=== PATIENT | male | born 1955 | race Caucasian/White ===

== ENCOUNTER 2017-03-07 03:31 | Inpatient (IN) | payer OTHER ==
[2017-03-07] MEDS ORDERED: Albuterol-Ipratrop 3 mg / 0.5 (3 ml) UD ONE ×4 (03:50→16:05)
--- NOTE | 2017-03-07 03:54 | C.PDOC ---
History Of Present Illness pt presents with worsening shortness og breath and wheezing. sah his pmd and was given a medrol pack , zithromax without improvement. Speaking in complete sentences. PF 100. Time Seen by Provider: 03/07/17 03:54 Chief Complaint (Nursing): Respiratory Distress History Per: Patient History/Exam Limitations: no limitations Onset/Duration Of Symptoms: Days Current Symptoms Are (Timing): Still Present Associated Symptoms: Dyspnea Preciptating Factors: None Severity: Moderate Pain Scale Rating Of: 4 Recent travel outside of the [place]: No Additional History Per: Patient - Asthma History Rescue Medications: None Control Medications: None Past Medical History Reviewed: Historical Data, Nursing Documentation, Vital Signs Vital Signs: Last Vital Signs Temp 98.4 F 03/07/17 03:43 Pulse 101 H 03/07/17 04:44 Resp 16 03/07/17 04:44 BP 149/97 H 03/07/17 03:43 Pulse Ox 97 03/07/17 05:30 - Medical History PMH: Asthma, COPD Family History: States: No Known Family Hx - Social History Hx Alcohol Use: No Hx Substance Use: No - Immunization History Hx Tetanus Toxoid Vaccination: No Hx Influenza Vaccination: No Hx Pneumococcal Vaccination: No Review Of Systems Constitutional: Negative for: Fever, Chills Eyes: Negative for: Vision Change ENT: Negative for: Ear Pain Cardiovascular: Negative for: Chest Pain, Palpitations Respiratory: Positive for: Cough, Shortness of Breath, Wheezing Gastrointestinal: Negative for: Nausea, Vomiting Genitourinary: Negative for: Dysuria Musculoskeletal: Negative for: Back Pain Skin: Negative for: Rash Neurological: Negative for: Weakness Psych: Negative for: Anxiety Physical Exam - Physical Exam Appears: Non-toxic Skin: Warm, Dry Head: Normacephalic Eye(s): bilateral: Normal Inspection, PERRL, EOMI Oral Mucosa: Moist Neck: Supple Chest: Symmetrical, Tenderness Respiratory: Decreased Breath Sounds, No Rales, No Rhonchi, Wheezing Gastrointestinal/Abdominal: Soft, No Tenderness, No Distention Back: No CVA Tenderness Extremity: Normal ROM Extremity: Bilateral: Atraumatic, Normal Color And Temperature, Normal ROM Pulses: Left Dorsalis Pedis: Normal, Right Dorsalis Pedis: Normal Neurological/Psych: Oriented x3, Normal Speech, Normal Cognition Gait: Steady ED Course And Treatment - Laboratory Results Result Diagrams: 03/07/17 04:37 03/07/17 04:37 ECG: Interpreted By Me, Viewed By Me ECG Rhythm: Sinus Rhythm (100), ST/T Changes (st depression, inf lat, new since 02/10/17), Nonspecific Changes (lvh, ) O2 Sat by Pulse Oximetry: 97 Pulse Ox Interpretation: Normal - Radiology CXR: Interpreted by Me, Viewed By Me CXR Interpretation: Yes: Cardiomegaly. No: Infiltrates, Fracture Critical Care Time - Critical Care Note Total Time (in mins): 30 Documented critical care: time excludes all time spent performing seperately billable procedures. Disposition Discussed With DrTony: Chan Roland Comment: accepted the pt on his service and took over the care at 5:38 AM Doctor Will See Patient In The: Hospital Counseled Patient/Family Regarding: Studies Performed, Diagnosis - Disposition Disposition: HOSPITALIZED Disposition Time: 03:54 Condition: FAIR Forms: [facility] [facility] ([place]) - POA Present On Arrival: None - Clinical Impression Clinical Impression: Exacerbation of asthma, Dyspnea, Abnormal finding on EKG Decision To Admit - Pt Status Changed To: Hospital Disposition Of: Inpatient - Admit Certification Admit to Inpatient:: After my assessment, the patient will require hospitalization for at least two midnights. This is because of the severity of symptoms shown, intensity of services needed, and/or the medical risk in this patient being treated as an outpatient. - InPatient: Physician Admission Certification:: After my assessment, the patient will require hospitalization for at least two midnights. This is because of the severity of symptoms shown, intensity of services needed, and/or the medical risk in this patient being treated as an outpatient. - . Bed Request Type: Telemetry Admitting Physician: Chan Roland Patient Diagnosis: Exacerbation of asthma, Dyspnea, Abnormal finding on EKG
[2017-03-07] MEDS ORDERED: Sodium Chloride 0.9% 1,000 ML IV ONE (03:55)
[2017-03-07] MEDS ORDERED: Albuterol-Ipratrop 3 mg / 0.5 (3 ml) UD INH STA (03:55)
[2017-03-07 04:16] LABS: ABG ALLEN TEST POS; DRAW SITE RR
[2017-03-07] MEDS: Albuterol-Ipratrop 3 mg / 0.5 (3 ml) UD IH SCH ×2 (04:21→06:16)
[2017-03-07 04:40] LABS: BASO % 0.2 % (0.0-2.0); EOS % 0.1 % (0.0-4.0); LYMPH # 0.5 K/uL (1.0-4.3); MEAN CELL VOLUME 93.2 fL (80.0-94.0); MEAN CORPUSCULAR HEMOGLOBIN 31.4 pg (27.0-31.0); MEAN CORPUSCULAR HGB CONC 33.7 g/dL (33.0-37.0); MEAN PLATELET VOLUME 7.7 fL (7.2-11.7); MONO # 0.5 K/uL (0.0-0.8); MONO % 4.3 % (0.0-10.0); PLATELET COUNT 213 K/uL (130-400); RED CELL DISTRIBUTION WIDTH 13.5 % (11.5-14.5); WHITE BLOOD COUNT 10.8 K/uL (4.8-10.8)
[2017-03-07] MEDS ORDERED: Sodium Chloride 0.9% 1,000 ML ONE (04:40)
[2017-03-07 04:48] LABS: CHLORIDE 106 mmol/L (98-107)
[2017-03-07 04:49] LABS: POTASSIUM 4.1 mmol/L (3.6-5.2); SODIUM 140 mmol/L (132-148)
[2017-03-07 04:51] LABS: ALB/GLOB RATIO 1.3 (1.0-2.1); AST/SGOT 68 U/L (17-59); BILIRUBIN,TOTAL 0.6 mg/dL (0.2-1.3); BLOOD UREA NITROGEN 21 mg/dL (9-20); CARBON DIOXIDE 24 mmol/L (22-30); GFR AFRICAN-AMERICAN > 60; TOTAL PROTEIN 5.8 g/dL (6.3-8.3)
[2017-03-07 04:52] LABS: ALKALINE PHOSPHATASE 70 U/L (38-126); ALT/SGPT 106 U/L (21-72); CALCIUM 8.6 mg/dl (8.6-10.4); GLUCOSE,RANDOM 108 mg/dL (75-110)
[2017-03-07 06:04] LABS: NEUTROPHIL 89 % (50-75); TOTAL CELLS COUNTED 100
[2017-03-07] MEDS: MethylPREDNISolone 40 mg Vial IVP SCH ×3 (06:07→22:42)
--- NOTE | 2017-03-07 09:24 | RAD ---
PROCEDURE: CHEST RADIOGRAPH, 1 VIEW HISTORY: Shortness of breath COMPARISON: 03/07/2017 FINDINGS: LUNGS: Biapical pleural thickening with upper lobe granulomatous changes. Moderate venous congestion. Prominent diffuse increased interstitial lung markings. More cough confluent patchy consolidative changes in the right infrahilar region and left lung base. Small left and trace right pleural effusion. Scattered nodular densities in both lungs. PLEURA: As above. CARDIOVASCULAR: Cardiomegaly. OSSEOUS STRUCTURES: Degenerative changes in the spine and shoulders. VISUALIZED UPPER ABDOMEN: Normal. OTHER FINDINGS: None. IMPRESSION: Biapical pleural thickening with upper lobe granulomatous changes. Moderate venous congestion. Prominent diffuse increased interstitial lung markings. More cough confluent patchy consolidative changes in the right infrahilar region and left lung base. Small left and trace right pleural effusion. Scattered nodular densities in both lungs.
[2017-03-07] MEDS: Albuterol-Ipratrop 3 mg / 0.5 (3 ml) UD INH SCH ×3 (10:25→20:07)
[2017-03-07] MEDS: Enoxaparin 40 mg Syringe SC SCH (11:56)
[2017-03-07] MEDS ORDERED: Enoxaparin 40 mg Syringe ONE (13:10)
[2017-03-07 16:03] LABS: TROPONIN I 0.036 ng/mL (0.00-0.120)
--- NOTE | 2017-03-07 23:52 | CP.PCM.HP ---
History of Present Illness - History of Present Illness History of Present Illness: 61 years old male complaining of worsening of shortness of breath and wheezing for the past 2 weeks. She was treated with Medrol pack and Zithromax as an outpatient without any improvement. He is known to have a bronchial asthma, a hypertension and a gout, he denies any fever, chills. Present on Admission - Present on Admission Any Indicators Present on Admission: No Past Patient History - Past Medical History & Family History Past Medical History?: Yes - Past Social History Smoking Status: Never Smoked Alcohol: None Drugs: Denies Home Situation {Lives}: With Family Domestic Violence: Negative - CARDIAC Hx Hypertension: Yes - PULMONARY Hx Asthma: Yes Hx Chronic Obstructive Pulmonary Disease (COPD): Yes - MUSCULOSKELETAL/RHEUMATOLOGICAL Hx Falls: No Hx Gout: Yes - PSYCHIATRIC Hx Substance Use: No - SURGICAL HISTORY Other/Comment: as per pt. he had heart and lung sx in [place] in 1990 - ANESTHESIA Hx Anesthesia: Yes Hx Anesthesia Reactions: No Hx Malignant Hyperthermia: No Meds Allergies/Adverse Reactions: Allergies Allergy/AdvReac Type Severity Reaction Status Date / Time No Known Allergies Allergy Unverified 03/07/17 03:47 Physical Exam - Constitutional Appears: In Acute Distress - Head Exam Head Exam: NORMAL INSPECTION - Eye Exam Eye Exam: Normal appearance - ENT Exam ENT Exam: Normal Exam - Neck Exam Neck exam: Positive for: Normal Inspection - Respiratory Exam Additional comments: Wheezes bilaterally. - Cardiovascular Exam Cardiovascular Exam: REGULAR RHYTHM - GI/Abdominal Exam GI & Abdominal Exam: Normal Bowel Sounds, Soft - Rectal Exam Rectal Exam: Deferred - Extremities Exam Extremities exam: Positive for: normal inspection - Back Exam Back exam: NORMAL INSPECTION - Neurological Exam Neurological exam: Alert, Oriented x3 - Psychiatric Exam Psychiatric exam: Anxious - Skin Skin Exam: Dry, Intact, Normal Color, Warm Results - Vital Signs Recent Vital Signs: Last Vital Signs Temp 97.9 F 03/07/17 17:15 Pulse 100 H 03/07/17 20:07 Resp 20 03/07/17 17:15 BP 130/80 03/07/17 17:15 Pulse Ox 95 03/07/17 17:30 - Labs Result Diagrams: 03/07/17 04:37 03/07/17 04:37 Labs: Laboratory Results - last 24 hr 03/07/17 03/07/17 03/07/17 04:13 04:37 04:37 WBC 10.8 RBC 4.51 Hgb 14.2 Hct 42.0 MCV 93.2 MCH 31.4 H MCHC 33.7 RDW 13.5 Plt Count 213 MPV 7.7 Neut % (Auto) 90.4 H Lymph % (Auto) 5.0 L [place] % (Auto) 4.3 Eos % (Auto) 0.1 Baso % (Auto) 0.2 Neut # 9.8 H Lymph # 0.5 L [place] # 0.5 Eos # 0.0 Baso # 0.0 Neutrophils % (Manual) 89 H Lymphocytes % (Manual) 6 L Monocytes % (Manual) 5 Platelet Estimate Normal Puncture Site Rr pCO2 32 L pO2 91 HCO3 25.2 ABG pH 7.47 H ABG Total CO2 24.3 ABG O2 Saturation 98.6 H ABG Base Excess 0.3 Win Test Pos ABG Potassium 3.9 A-a O2 Difference 19.0 Respiratory Index 0.2 Sodium 138.0 140 Chloride 110.0 H 106 Glucose 120 H Lactate 1.2 FiO2 21.0 Potassium 4.1 Carbon Dioxide 24 Anion Gap 15 BUN 21 H Creatinine 0.9 Est GFR ( Amer) > 60 Est GFR (Non-Af Amer) > 60 Random Glucose 108 Calcium 8.6 Total Bilirubin 0.6 AST 68 H ALT 106 H Alkaline Phosphatase 70 Total Creatine Kinase CK-MB (Mass) Troponin I Troponin I, Quant NT-Pro-B Natriuret Pep Total Protein 5.8 L Albumin 3.3 L Globulin 2.5 Albumin/Globulin Ratio 1.3 Arterial Blood Potassium 3.9 03/07/17 03/07/17 03/07/17 05:18 05:57 14:13 WBC RBC Hgb Hct MCV MCH MCHC RDW Plt Count MPV Neut % (Auto) Lymph % (Auto) [place] % (Auto) Eos % (Auto) Baso % (Auto) Neut # Lymph # [place] # Eos # Baso # Neutrophils % (Manual) Lymphocytes % (Manual) Monocytes % (Manual) Platelet Estimate Puncture Site pCO2 pO2 HCO3 ABG pH ABG Total CO2 ABG O2 Saturation ABG Base Excess Win Test ABG Potassium A-a O2 Difference Respiratory Index Sodium Chloride Glucose Lactate FiO2 Potassium Carbon Dioxide Anion Gap BUN Creatinine Est GFR ( Amer) Est GFR (Non-Af Amer) Random Glucose Calcium Total Bilirubin AST ALT Alkaline Phosphatase Total Creatine Kinase 138 110 CK-MB (Mass) 3.14 2.60 Troponin I 0.0360 Troponin I, Quant 0.0520 0.0360 NT-Pro-B Natriuret Pep 5070 H Total Protein Albumin Globulin Albumin/Globulin Ratio Arterial Blood Potassium Assessment & Plan (1) Abnormal finding on EKG Assessment and Plan: Will do serial ECG's and serum TNI's. Status: Acute (2) Exacerbation of asthma Assessment and Plan: To continue Solumedrol, bronchodilators via nebulizer. Status: Acute Decision To Admit - Pt Status Changed To: Hospital Disposition Of: Inpatient - Admit Certification Admit to Inpatient:: After my assessment, the patient will require hospitalization for at least two midnights. This is because of the severity of symptoms shown, intensity of services needed, and/or the medical risk in this patient being treated as an outpatient. - InPatient: Physician Admission Certification:: After my assessements, the patient requires hospitalization for at least 2 midnights. - . Bed Request Type: Telemetry Admitting Physician: Chan Roland
[2017-03-08] MEDS: Albuterol-Ipratrop 3 mg / 0.5 (3 ml) UD INH SCH ×4 (01:03→19:46)
[2017-03-08] MEDS: MethylPREDNISolone 40 mg Vial IVP SCH ×3 (05:40→22:09)
[2017-03-08] MEDS: Enoxaparin 40 mg Syringe SC SCH (10:27)
[2017-03-08] MEDS: cefTRIAXone IV 1 gm in Dextros 50 ML IVPB SCH (10:28)
[2017-03-08] MEDS ORDERED: Perflutren Lipid Microsphere 1.5 ML SUS IV ONE (12:00)
--- NOTE | 2017-03-08 23:09 | CP.PCM.PN ---
Subjective - Date & Time of Evaluation Date of Evaluation: 03/08/17 Time of Evaluation: 19:00 - Subjective Subjective: Patient less SOB with Lasix IV. Echo reveals a dilated LV with a marked global hypokinesia and an LVEF about 25-30%. There is allso a minimal TR, AI, and a mild MR, a dilated IVC. Telemetry showed an episode of ventricular tachycardia. Will decrease Solumedrol soage, recheck serum electrolytes and Magnesium and add Spirolnolactone. Objective - Vital Signs/Intake and Output Vital Signs (last 24 hours): Temp Pulse Resp BP Pulse Ox 98.1 F 99 H 20 101/64 97 03/08/17 15:58 03/08/17 16:17 03/08/17 15:58 03/08/17 15:58 03/08/17 15:58 Intake and Output: 03/08/17 03/09/17 18:59 06:59 Intake Total 600 Output Total 400 Balance 200 - Medications Medications: Current Medications Albuterol/Ipratropium (Duoneb 3 Mg/0.5 Mg (3 Ml) Ud) 3 ml INH RQ6 [facility] Last Admin: 03/08/17 19:46 Dose: 3 ml Allopurinol (Zyloprim) 100 mg PO DAILY [facility] Last Admin: 03/08/17 10:27 Dose: 100 mg Amlodipine Besylate (Norvasc) 10 mg PO DAILY [facility] Last Admin: 03/08/17 10:27 Dose: 10 mg Azithromycin (Zithromax) 500 mg PO DAILY [facility] Last Admin: 03/08/17 10:26 Dose: 500 mg Enoxaparin Sodium (Lovenox) 40 mg SC DAILY [facility] Last Admin: 03/08/17 10:27 Dose: 40 mg Furosemide (Lasix) 40 mg IVP DAILY [facility] Last Admin: 03/08/17 10:39 Dose: 40 mg Ceftriaxone Sodium (Rocephin Iv 1 Gm Duplex) 50 mls @ 100 mls/hr IVPB DAILY [facility] Last Admin: 03/08/17 10:28 Dose: 100 mls/hr Losartan Potassium (Cozaar) 100 mg PO DAILY [facility] Last Admin: 03/08/17 10:27 Dose: 100 mg Methylprednisolone (Solu-Medrol) 60 mg IVP Q8 [facility] Last Admin: 03/08/17 22:09 Dose: 60 mg Pneumococcal Polyvalent Vaccine (Pneumovax 23 Vaccine) 0.5 ml IM .ONCE ONE Stop: 03/09/17 10:01 - Labs Labs: 03/07/17 04:37 03/07/17 04:37 - Constitutional Appears: No Acute Distress - Head Exam Head Exam: NORMAL INSPECTION - Eye Exam Eye Exam: Normal appearance - ENT Exam ENT Exam: Normal Exam - Neck Exam Neck Exam: Normal Inspection - Respiratory Exam Additional comments: Decreased wheezes bilaterally. - Cardiovascular Exam Cardiovascular Exam: REGULAR RHYTHM, Murmur - GI/Abdominal Exam GI & Abdominal Exam: Soft, Normal Bowel Sounds - Rectal Exam Rectal Exam: Deferred - Extremities Exam Extremities Exam: Normal Inspection - Back Exam Back Exam: NORMAL INSPECTION - Neurological Exam Neurological Exam: Alert, Awake, Oriented x3 - Psychiatric Exam Psychiatric exam: Anxious - Skin Skin Exam: Dry, Intact, Normal Color, Warm Assessment and Plan (1) Abnormal finding on EKG Status: Acute (2) Exacerbation of asthma Assessment & Plan: Decreased Solumedrol. Status: Acute (3) Acute systolic CHF (congestive heart failure) Assessment & Plan: To continue Lasix, Losartan. Will add Aldactone. Status: Acute (4) Non-ischemic cardiomyopathy Assessment & Plan: Patient had a normal Myoview stress test last year. Status: Acute (5) Pneumonia Assessment & Plan: To continue IV antibiotics. Status: Acute
[2017-03-08] MEDS ORDERED: methylPREDNISolone 60 MG in Sodium Chloride 0.9% 100 ML IVPB SCH (23:15)
[2017-03-09] MEDS: Albuterol-Ipratrop 3 mg / 0.5 (3 ml) UD INH SCH ×4 (01:15→19:24)
[2017-03-09 07:18] LABS: CHLORIDE 98 mmol/L (98-107); POTASSIUM 4.4 mmol/L (3.6-5.2); SODIUM 133 mmol/L (132-148)
[2017-03-09 07:20] LABS: ALB/GLOB RATIO 1.2 (1.0-2.1); BILIRUBIN,TOTAL 0.6 mg/dL (0.2-1.3); CARBON DIOXIDE 25 mmol/L (22-30); GFR AFRICAN-AMERICAN > 60; TOTAL PROTEIN 6.3 g/dL (6.3-8.3)
[2017-03-09 07:21] LABS: ALKALINE PHOSPHATASE 57 U/L (38-126); ALT/SGPT 63 U/L (21-72); AST/SGOT 22 U/L (17-59); BLOOD UREA NITROGEN 25 mg/dL (9-20); CALCIUM 8.5 mg/dl (8.6-10.4); GLUCOSE,RANDOM 140 mg/dL (75-110); MAGNESIUM 2.2 mg/dL (1.6-2.3)
[2017-03-09 07:37] LABS: FREE T4 0.81 ng/dL (0.78-2.19)
[2017-03-09 09:10] LABS: THYROID STIMULATING HORMONE 0.26 mIU/L (0.46-4.68)
[2017-03-09] MEDS: cefTRIAXone IV 1 gm in Dextros 50 ML IVPB SCH (09:56)
[2017-03-09] MEDS ORDERED: Influenza Vaccine 60 mcg/0.5 mL SYR (4YR UP) IM ONE (10:00)
[2017-03-09] MEDS: Enoxaparin 40 mg Syringe SC SCH (10:00)
[2017-03-09] MEDS ORDERED: Influenza Virus Vaccine 45 mcg/0.5 ml Syr (36 months - 7 yrs) IM ONE (10:00)
[2017-03-09] MEDS ORDERED: Pneumococcal 23-Valent Vaccine IM ONE (10:00)
[2017-03-09] MEDS ORDERED: methylPREDNISolone 60 MG in Sodium Chloride 0.9% 100 ML IVPB SCH (10:00)
--- NOTE | 2017-03-09 12:04 | CARD ---
APPROVED REPORT EKG Measurement Heart [id number] <Conclusion> Normal sinus rhythm Possible Left atrial enlargement Left axis deviation Left ventricular hypertrophy with QRS widening and repolarization abnormality Prolonged QT Abnormal ECG
--- NOTE | 2017-03-09 12:37 | CARD ---
APPROVED REPORT EXAM: Two-dimensional and M-mode echocardiogram with Doppler, color Doppler with contrast. Other Information Quality : GoodRhythm : NSR INDICATION Dyspnea Cardiomyopathy Congestive Heart Failure SOB, ACUTE ASTHMA INFERIOR LATERAL ISCHEMIC JEANNETTE RISK FACTORS Hypertension 2D DIMENSIONS IVSd0.9 (0.7-1.1cm)LVDd6.9 (3.9-5.9cm) PWd0.8 (0.7-1.1cm)LVDs6.4 (2.5-4.0cm) FS (%) 8.2 %LVEF (%)17.6 (>50%) M-Mode DIMENSIONS RVDd2.03 (2.1-3.2cm)Left Atrium (MM)4.30 (2.5-4.0cm) IVSd0.70 (0.7-1.1cm)Aortic Root3.54 (2.2-3.7cm) LVDd7.46 (4.0-5.6cm)Aortic Cusp Exc.2.10 (1.5-2.0cm) PWd0.82 (0.7-1.1cm)FS (%) 7 % LVDs6.91 (2.0-3.8cm)LVEF (%)16 (>50%) Aortic Valve AI P 1/2 [id number] Mitral Valve E/A ratio0.0 TDI E/Lateral E'0.0E/Medial E'0.0 Tricuspid Valve TR Peak [id number] Peak [id number] LEFT VENTRICLE The Left Ventricle is severely dilated. There is normal left ventricular wall thickness. The Ejection Fraction is 15-20%. There is global hypokinesis of the left ventricle. dialted la,increases la volume index is suggestive of moderate degree of lv diastolic dysfunciton. No left ventricle thrombus noted on this study. RIGHT VENTRICLE The right ventricle is normal size. The right ventricular systolic function is normal. ATRIA The left atrium is mildly dilated. The right atrium size is normal. AORTIC VALVE The aortic valve is normal in structure. There is mild aortic regurgitation. MITRAL VALVE The mitral valve is normal in structure. Mitral regurgitation is moderate. TRICUSPID VALVE The tricuspid valve is normal in structure. There is mild tricuspid regurgitation. Right ventricular systolic pressure is estimated at 28 mmHg. There is no pulmonary hypertension. PULMONIC VALVE The pulmonary valve is normal in structure. There is mild pulmonic valvular regurgitation. GREAT VESSELS The aortic root is normal in size. Dilated IVC with poor inspiration collapse is consistent with elevated right atrial pressure. PERICARDIAL EFFUSION There is no pericardial effusion. <Conclusion> dialted la,increases la volume index is suggestive of moderate degree of lv diastolic dysfunciton. The Left Ventricle is severely dilated. There is normal left ventricular wall thickness. The Ejection Fraction is 15-20%. There is global hypokinesis of the left ventricle. The left atrium is mildly dilated. Mitral regurgitation is moderate. There is mild tricuspid regurgitation. Right ventricular systolic pressure is estimated at 28 mmHg. There is no pulmonary hypertension. Dilated IVC with poor inspiration collapse is consistent with elevated right atrial pressure.
--- NOTE | 2017-03-09 23:12 | CP.PCM.PN ---
Subjective - Date & Time of Evaluation Date of Evaluation: 03/09/17 Time of Evaluation: 21:45 - Subjective Subjective: Patient less SOB, but still wheezes. Afebrile. For a repeated CXR to-jung. Objective - Vital Signs/Intake and Output Vital Signs (last 24 hours): Temp Pulse Resp BP Pulse Ox 98.2 F 105 H 20 105/72 95 03/09/17 15:37 03/09/17 16:17 03/09/17 15:37 03/09/17 15:37 03/09/17 15:37 Intake and Output: 03/09/17 03/10/17 18:59 06:59 Intake Total 450 400 Balance 450 400 - Medications Medications: Current Medications Albuterol/Ipratropium (Duoneb 3 Mg/0.5 Mg (3 Ml) Ud) 3 ml INH RQ6 [facility] Last Admin: 03/09/17 19:24 Dose: 3 ml Allopurinol (Zyloprim) 100 mg PO DAILY [facility] Last Admin: 03/09/17 10:01 Dose: 100 mg Amlodipine Besylate (Norvasc) 10 mg PO DAILY [facility] Last Admin: 03/09/17 10:01 Dose: 10 mg Azithromycin (Zithromax) 500 mg PO DAILY [facility] Last Admin: 03/09/17 10:01 Dose: 500 mg Enoxaparin Sodium (Lovenox) 40 mg SC DAILY [facility] Last Admin: 03/09/17 10:00 Dose: 40 mg Furosemide (Lasix) 40 mg IVP DAILY [facility] Last Admin: 03/09/17 10:01 Dose: 40 mg Ceftriaxone Sodium (Rocephin Iv 1 Gm Duplex) 50 mls @ 100 mls/hr IVPB DAILY [facility] Last Admin: 03/09/17 09:56 Dose: 100 mls/hr Losartan Potassium (Cozaar) 100 mg PO DAILY [facility] Last Admin: 03/09/17 10:02 Dose: 100 mg Methylprednisolone (Solu-Medrol) 60 mg IVP Q12 [facility] Last Admin: 03/09/17 22:15 Dose: 60 mg - Labs Labs: 03/07/17 04:37 03/09/17 07:01 - Constitutional Appears: No Acute Distress - Head Exam Head Exam: NORMAL INSPECTION - Eye Exam Eye Exam: Normal appearance Pupil Exam: NORMAL ACCOMODATION - ENT Exam ENT Exam: Normal Exam - Neck Exam Neck Exam: Normal Inspection - Respiratory Exam Respiratory Exam: Wheezes Additional comments: Wheezes bilaterally. - Cardiovascular Exam Cardiovascular Exam: REGULAR RHYTHM, Murmur - GI/Abdominal Exam GI & Abdominal Exam: Soft, Normal Bowel Sounds - Rectal Exam Rectal Exam: Deferred - Exam Exam: NORMAL INSPECTION - Extremities Exam Extremities Exam: Normal Inspection - Neurological Exam Neurological Exam: Alert, Awake, Normal Gait, Oriented x3 - Psychiatric Exam Psychiatric exam: Anxious - Skin Skin Exam: Dry, Intact, Warm Assessment and Plan (1) Abnormal finding on EKG Status: Acute (2) Exacerbation of asthma Assessment & Plan: To continue IV Solumedrol and Duoneb by nebulizer. Status: Acute (3) Acute systolic CHF (congestive heart failure) Assessment & Plan: To continue Lasix IV and Losartan. Status: Acute (4) Non-ischemic cardiomyopathy Status: Acute (5) Pneumonia Assessment & Plan: To continue Rocephin IV and Zithromax PO. Repeat CXR in AM. Status: Acute
[2017-03-10] MEDS: Albuterol-Ipratrop 3 mg / 0.5 (3 ml) UD INH SCH ×4 (01:06→19:12)
[2017-03-10 08:26] VITALS: RESP 20
[2017-03-10] MEDS: cefTRIAXone IV 1 gm in Dextros 50 ML IVPB SCH (09:17)
[2017-03-10] MEDS: guaiFENesin 200 mg/10 ml Syrup UD PO PRN (09:17)
[2017-03-10] MEDS: Enoxaparin 40 mg Syringe SC SCH (09:19)
[2017-03-10] MEDS ORDERED: Influenza Vaccine 60 mcg/0.5 mL SYR (4YR UP) IM ONE (10:00)
--- NOTE | 2017-03-10 10:10 | RAD ---
HISTORY: F/U CHF, Pneumonia, exacerbation of asthma. COMPARISON: 03/07/2017 TECHNIQUE: Chest PA and lateral FINDINGS: LUNGS: Increased lung volume, by lateral upper lobe cystic emphysematous changes suggested. . No dense consolidation. 1.2 cm nodular opacity projecting over the anterior right 1st rib possibly coaster cartilaginous junctional related similar appearance. Indeterminate equivocal nodular opacity over left lateral hemidiaphragm -increasing conspicuity - summation of soft tissues versus a true parenchymal pathology here considerations. PLEURA: No significant pleural effusion identified. No pneumothorax apparent. CARDIOVASCULAR: Cardiomegaly -similar OSSEOUS STRUCTURES: No significant abnormalities. VISUALIZED UPPER ABDOMEN: Normal. OTHER FINDINGS: None. IMPRESSION: No dense consolidation. No arnulfo pulmonary edema. Cardiomegaly. Right upper lobe nodular opacity probably related to right 1st coaster cartilaginous junction. Left lateral lung base vague nodular opacity- determinate in significance (if any). Consider CT chest without contrast for clarification
--- NOTE | 2017-03-10 23:30 | CP.PCM.PN ---
Subjective - Date & Time of Evaluation Date of Evaluation: 03/10/17 Time of Evaluation: 20:45 - Subjective Subjective: Patient much less SOB. Afebrile. CXR: No consolitation, but an ill-defined opacity at the left lateral hemidiaphragm. Will order a CT scan of the chest without contrast. If it's normal, will discharge home in AM. Objective - Vital Signs/Intake and Output Vital Signs (last 24 hours): Temp Pulse Resp BP Pulse Ox 97.4 F L 117 H 20 138/54 L 98 03/10/17 15:30 03/10/17 16:00 03/10/17 15:30 03/10/17 15:30 03/10/17 15:30 Intake and Output: 03/10/17 03/11/17 18:59 06:59 Intake Total 770 Balance 770 - Medications Medications: Current Medications Albuterol/Ipratropium (Duoneb 3 Mg/0.5 Mg (3 Ml) Ud) 3 ml INH RQ6 [facility] Last Admin: 03/10/17 19:12 Dose: 3 ml Allopurinol (Zyloprim) 100 mg PO DAILY [facility] Last Admin: 03/10/17 09:18 Dose: 100 mg Amlodipine Besylate (Norvasc) 10 mg PO DAILY [facility] Last Admin: 03/10/17 09:18 Dose: 10 mg Azithromycin (Zithromax) 500 mg PO DAILY [facility] Last Admin: 03/10/17 09:18 Dose: 500 mg Enoxaparin Sodium (Lovenox) 40 mg SC DAILY [facility] Last Admin: 03/10/17 09:19 Dose: 40 mg Furosemide (Lasix) 40 mg IVP DAILY [facility] Last Admin: 03/10/17 09:22 Dose: 40 mg Guaifenesin (Robitussin) 200 mg PO QID PRN PRN Reason: Cough and congestion Last Admin: 03/10/17 09:17 Dose: 200 mg Ceftriaxone Sodium (Rocephin Iv 1 Gm Duplex) 50 mls @ 100 mls/hr IVPB DAILY [facility] Last Admin: 03/10/17 09:17 Dose: 100 mls/hr Losartan Potassium (Cozaar) 100 mg PO DAILY [facility] Last Admin: 03/10/17 09:18 Dose: 100 mg Methylprednisolone (Solu-Medrol) 60 mg IVP Q12 [facility] Last Admin: 03/10/17 22:14 Dose: 60 mg - Labs Labs: 03/07/17 04:37 03/09/17 07:01 - Constitutional Appears: No Acute Distress - Head Exam Head Exam: NORMAL INSPECTION - Eye Exam Eye Exam: Normal appearance - ENT Exam ENT Exam: Normal Exam - Neck Exam Neck Exam: Normal Inspection - Respiratory Exam Additional comments: Few wheezes bilaterally. - Cardiovascular Exam Cardiovascular Exam: REGULAR RHYTHM, Murmur - GI/Abdominal Exam GI & Abdominal Exam: Soft, Normal Bowel Sounds - Rectal Exam Rectal Exam: Deferred - Extremities Exam Extremities Exam: Normal Inspection - Back Exam Back Exam: NORMAL INSPECTION - Neurological Exam Neurological Exam: Alert, Awake, Normal Gait, Oriented x3 - Psychiatric Exam Psychiatric exam: Anxious - Skin Skin Exam: Dry, Intact, Normal Color, Warm Assessment and Plan (1) Abnormal finding on EKG Status: Acute (2) Exacerbation of asthma Assessment & Plan: To decrease Solumedrol Status: Acute (3) Acute systolic CHF (congestive heart failure) Assessment & Plan: To continue Losartan and Diuretics. Status: Acute (4) Non-ischemic cardiomyopathy Status: Acute (5) Pneumonia Assessment & Plan: To continue IV antibiotics. Status: Acute
[2017-03-11] MEDS: Albuterol-Ipratrop 3 mg / 0.5 (3 ml) UD INH SCH ×3 (01:39→13:33)
[2017-03-11 07:31] LABS: BASO % 0.1 % (0.0-2.0); LYMPH # 0.2 K/uL (1.0-4.3); MEAN CELL VOLUME 93.4 fL (80.0-94.0); MEAN CORPUSCULAR HEMOGLOBIN 31.7 pg (27.0-31.0); MEAN CORPUSCULAR HGB CONC 33.9 g/dL (33.0-37.0); MEAN PLATELET VOLUME 7.8 fL (7.2-11.7); MONO # 0.4 K/uL (0.0-0.8); MONO % 4.6 % (0.0-10.0); PLATELET COUNT 235 K/uL (130-400); RED CELL DISTRIBUTION WIDTH 13.3 % (11.5-14.5); WHITE BLOOD COUNT 8.2 K/uL (4.8-10.8)
[2017-03-11 07:44] LABS: CHLORIDE 98 mmol/L (98-107); SODIUM 132 mmol/L (132-148)
[2017-03-11 07:45] LABS: POTASSIUM 4.2 mmol/L (3.6-5.2)
[2017-03-11 07:47] LABS: ALB/GLOB RATIO 1.2 (1.0-2.1); ALKALINE PHOSPHATASE 53 U/L (38-126); AST/SGOT 22 U/L (17-59); BILIRUBIN,TOTAL 0.7 mg/dL (0.2-1.3); BLOOD UREA NITROGEN 30 mg/dL (9-20); CARBON DIOXIDE 25 mmol/L (22-30); GFR AFRICAN-AMERICAN > 60; GLUCOSE,RANDOM 112 mg/dL (75-110)
[2017-03-11 07:48] LABS: ALT/SGPT 49 U/L (21-72); CALCIUM 8.4 mg/dl (8.6-10.4); URIC ACID 7.9 mg/dL (3.5-8.5)
[2017-03-11 08:22] VITALS: O2SAT 97
[2017-03-11 09:26] LABS: NEUTROPHIL 94 % (50-75); TOTAL CELLS COUNTED 100
[2017-03-11] MEDS: Enoxaparin 40 mg Syringe SC SCH (09:54)
[2017-03-11] MEDS: cefTRIAXone IV 1 gm in Dextros 50 ML IVPB SCH (09:55)
[2017-03-11] MEDS: guaiFENesin 200 mg/10 ml Syrup UD PO PRN (10:04)
--- NOTE | 2017-03-11 10:12 | CT ---
CT chest without IV contrast Indication: Left lateral lung opacity Technique: Contiguous axial images were obtained through the chest without intravenous contrast enhancement. Sagittal and coronal reconstructions were generated and reviewed. This CT exam was performed using 1 or more of the falling dose reduction techniques: Automated exposure control, adjustment of the MAA and/or kV according to patient size, and/or use of iterative reconstruction technique. Radiation dose (DLP): 250.85 MGy-cm. Comparison: Chest x-ray performed 03/10/17 Findings: Visualized portions of the inferior thyroid gland appear unremarkable. The enhance mediastinal and hilar vascular structures appear grossly unremarkable. Cardiomegaly. Coronary artery calcifications. Bibasilar dependent atelectasis. Focal opacity in left upper lobe appears consistent with pleural parenchymal scarring. No focal consolidation. No pleural effusion. No pneumothorax. 2 mm right lower lobe calcified granuloma. Limited visualization of the noncontrast upper abdomen demonstrates bilateral nonobstructing renal calculi measuring up to 5 mm. Cholelithiasis. Osseous demineralization. Degenerative changes of the osseous structures. Impression: And focal opacity in the left upper lobe appears consistent with pleural parenchymal scarring. Bibasilar atelectasis. Nonobstructing bilateral renal calculi. Cholelithiasis. Cardiomegaly. Dense coronary artery calcifications.
[2017-03-11 16:47] VITALS: BP 101/58; PULSE 51; TEMP 98.3
--- NOTE | 2017-03-13 06:45 | CARD ---
APPROVED REPORT EKG Measurement Heart [id number] [place] [id number] <Conclusion> Normal sinus rhythm Possible Left atrial enlargement Left axis deviation Left ventricular hypertrophy with QRS widening and repolarization abnormality Cannot rule out Septal infarct, age undetermined Abnormal ECG
--- NOTE | 2017-03-16 19:51 | CP.PCM.DIS ---
Provider - Provider Date of Admission: 03/07/17 05:39 Attending physician: Chan Roland MD Primary care physician: Chan Roland M.D. Time Spent in preparation of Discharge (in minutes): 30 Diagnosis - Discharge Diagnosis (1) Abnormal finding on EKG Status: Acute (2) Exacerbation of asthma Status: Acute (3) Acute systolic CHF (congestive heart failure) Status: Acute (4) Non-ischemic cardiomyopathy Status: Acute Hospital Course - Lab Results Lab Results: Most Recent Lab Values WBC 8.2 K/uL (4.8-10.8) 03/11/17 07:20 RBC 4.82 Mil/uL (4.40-5.90) 03/11/17 07:20 Hgb 15.2 g/dL (12.0-18.0) 03/11/17 07:20 Hct 45.0 % (35.0-51.0) 03/11/17 07:20 MCV 93.4 fL (80.0-94.0) 03/11/17 07:20 MCH 31.7 pg (27.0-31.0) H 03/11/17 07:20 MCHC 33.9 g/dL (33.0-37.0) 03/11/17 07:20 RDW 13.3 % (11.5-14.5) 03/11/17 07:20 Plt Count 235 K/uL (130-400) 03/11/17 07:20 MPV 7.8 fL (7.2-11.7) 03/11/17 07:20 Neut % (Auto) 93.3 % (50.0-75.0) H 03/11/17 07:20 Lymph % (Auto) 2.0 % (20.0-40.0) L 03/11/17 07:20 [place] % (Auto) 4.6 % (0.0-10.0) 03/11/17 07:20 Eos % (Auto) 0.0 % (0.0-4.0) 03/11/17 07:20 Baso % (Auto) 0.1 % (0.0-2.0) 03/11/17 07:20 Neut # 7.6 K/uL (1.8-7.0) H 03/11/17 07:20 Lymph # 0.2 K/uL (1.0-4.3) L 03/11/17 07:20 [place] # 0.4 K/uL (0.0-0.8) 03/11/17 07:20 Eos # 0.0 K/uL (0.0-0.7) 03/11/17 07:20 Baso # 0.0 K/uL (0.0-0.2) 03/11/17 07:20 Neutrophils % (Manual) 94 % (50-75) H 03/11/17 07:20 Lymphocytes % (Manual) 2 % (20-40) L 03/11/17 07:20 Monocytes % (Manual) 4 % (0-10) 03/11/17 07:20 Platelet Estimate Normal (NORMAL) 03/11/17 07:20 Puncture Site Rr 03/07/17 04:13 pCO2 32 mm/Hg (35-45) L 03/07/17 04:13 pO2 91 mm/Hg (80-100) 03/07/17 04:13 HCO3 25.2 mmol/L (21-28) 03/07/17 04:13 ABG pH 7.47 (7.35-7.45) H 03/07/17 04:13 ABG Total CO2 24.3 mmol/L (22-28) 03/07/17 04:13 ABG O2 Saturation 98.6 % (95-98) H 03/07/17 04:13 ABG Base Excess 0.3 mmol/L (-2.0-3.0) 03/07/17 04:13 Win Test Pos 03/07/17 04:13 ABG Potassium 3.9 mmol/L (3.6-5.2) 03/07/17 04:13 A-a O2 Difference 19.0 mm/Hg 03/07/17 04:13 Respiratory Index 0.2 03/07/17 04:13 Sodium 138.0 mmol/l (132-148) 03/07/17 04:13 Chloride 110.0 mmol/L (98-107) H 03/07/17 04:13 Glucose 120 mg/dl (75-110) H 03/07/17 04:13 Lactate 1.2 mmol/L (0.7-2.1) 03/07/17 04:13 FiO2 21.0 % 03/07/17 04:13 Sodium 132 mmol/L (132-148) 03/11/17 07:20 Potassium 4.2 mmol/L (3.6-5.2) 03/11/17 07:20 Chloride 98 mmol/L (98-107) 03/11/17 07:20 Carbon Dioxide 25 mmol/L (22-30) 03/11/17 07:20 Anion Gap 13 (10-20) 03/11/17 07:20 BUN 30 mg/dL (9-20) H 03/11/17 07:20 Creatinine 1.0 mg/dL (0.8-1.5) 03/11/17 07:20 Est GFR ( Amer) > 60 03/11/17 07:20 Est GFR (Non-Af Amer) > 60 03/11/17 07:20 Random Glucose 112 mg/dL (75-110) H 03/11/17 07:20 Uric Acid 7.9 mg/dL (3.5-8.5) 03/11/17 07:20 Calcium 8.4 mg/dl (8.6-10.4) L 03/11/17 07:20 Magnesium 2.2 mg/dL (1.6-2.3) 03/09/17 07:01 Total Bilirubin 0.7 mg/dL (0.2-1.3) 03/11/17 07:20 AST 22 U/L (17-59) 03/11/17 07:20 ALT 49 U/L (21-72) 03/11/17 07:20 Alkaline Phosphatase 53 U/L (38-126) 03/11/17 07:20 Total Creatine Kinase 110 U/L (55-170) 03/07/17 14:13 CK-MB (Mass) 2.60 ng/mL (0.0-3.38) 03/07/17 14:13 Troponin I 0.0360 ng/mL (0.00-0.120) 03/07/17 14:13 Troponin I, Quant 0.0360 ng/mL (0.00-0.120) 03/07/17 14:13 NT-Pro-B Natriuret Pep 5070 pg/mL (0-900) H 03/07/17 05:18 Total Protein 6.0 g/dL (6.3-8.3) L 03/11/17 07:20 Albumin 3.3 g/dL (3.5-5.0) L 03/11/17 07:20 Globulin 2.7 gm/dL (2.2-3.9) 03/11/17 07:20 Albumin/Globulin Ratio 1.2 (1.0-2.1) 03/11/17 07:20 Free T4 0.81 ng/dL (0.78-2.19) 03/09/17 07:01 TSH 3rd Generation 0.26 mIU/L (0.46-4.68) L 03/09/17 07:01 Arterial Blood Potassium 3.9 mmol/L (3.6-5.2) 03/07/17 04:13 - Hospital Course Hospital Course: 61 years old male complaining of a productive cough, wheezing, shortness of breath and mild fever for the past 2 weeks. He was treated as an outpatient with Medrol Dosepack and Zithromax Z-pack without any improvements. In the ED, he was found to have an abnormal ECG with and RSR and LVH and ST-T wave change suggestive of myocardial ischemia. ACXR revealed a cardiomegaly with moderate venous congestion and infiltrates in the right and left bases. HisTNI was normal but his Pro-BNP was elevated at 5000. He was given Duoneb by nebulizer, started on IV Solumedrol and Lasix 40 mg IV, Rocephin IV and Zithromycin PO. He improved markedly. Subsequent TNI's were negative. A repeated CXR did not show anymore pulmonary cogestion. A CTscan of the chest revealed a cardiomegaly, coronary calcifications and mild apical scarring and atelectasis of both lung bases, bilateral, no-obstructive kidney stones, and cholelithiasis. an Echocardiogram revealed a markedly hypokinetic LV wit an LVEF around 15-20%. The patient had a normal stress MPI and echocardiogram a year ago.. Solumedrol was tapered, Lasix and Spironolactone were added. He became asymptomatic and stable to be discharged home on 03/11/2017. Antibiotics were discontinued. Medrol Dosepack was ordered with Lasix and Spironolactone. Amlodipine was discontinued. He will see me in my office in a week for follow up. - Date & Time of H&P Date of H&P: 03/07/17 Discharge Exam - Head Exam Head Exam: NORMAL INSPECTION - Eye Exam Eye Exam: Normal appearance - ENT Exam ENT Exam: Normal Exam - Neck Exam Neck exam: Normal Inspection - Respiratory Exam Respiratory Exam: Clear to PA & Lateral, NORMAL BREATHING PATTERN - Cardiovascular Exam Cardiovascular Exam: REGULAR RHYTHM, Systolic Murmur - GI/Abdominal Exam GI & Abdominal Exam: Normal Bowel Sounds, Soft - Rectal Exam Rectal Exam: Deferred - Exam Exam: NORMAL INSPECTION - Extremities Exam Extremities exam: normal inspection - Back Exam Back exam: NORMAL INSPECTION - Neurological Exam Neurological exam: Alert, CN II-XII Intact, Normal Gait, Oriented x3 - Psychiatric Exam Psychiatric exam: Anxious - Skin Skin Exam: Dry, Intact, Normal Color, Warm Discharge Plan - Discharge Medications Prescriptions: Spironolactone [Aldactone] 25 mg PO DAILY 30 Days #30 tab Furosemide [Lasix] 20 mg PO DAILY 30 Days #30 tablet Methylprednisolone [Medrol Dose Pack (21 tabs)] 4 mg PO QDCC #21 mg - Follow Up Plan Condition: FAIR Disposition: HOME/ ROUTINE Instructions: Allopurinol (By mouth), Spironolactone (By mouth), Furosemide ( By mouth), Albuterol (By breathing), Methylprednisolone (By mouth), Losartan ( By mouth), Heart Failure (DC), Asthma (DC), Heart Healthy Diet (DC), Low Sodium Diet (DC), Pneumonia (DC) Additional Instructions: Resume all meds, except Amlodipine. New meds: Furosemide 20 mg PO qd, and Spirolonolactone 25 mg PO qd. Referrals: Chan Roland MD [Staff Provider] - 1 Week Clinical Quality Measures - CQM - Heart Failure Ejection Fraction: Less Than 40 % Left Ventricular Function to be assessed after discharge: Yes ELEN Inhibitor Prescribed: No Contraindication/Reason for not providing: Patient is already on Losartan Beta-Caitie Prescribed: None Contraindication/Reason for not providing: Patient has asthma. Angiotensin II Receptor Catiie Prescribed: Yes AnticoagulationTherapy for Atrial Fibrillation/Atrialflutter: No Contraindication/Reason for not providing: Not indicated. Aldosterone Antagonist Prescribed: Yes Hydralazine Nitrate Prescribed: No Contraindication/Reason for not providing: Low BP Implantable Cardioverter Defibrillator Therapy: No Contraindication/Reason for not providing: Not indicated. Cardiac Resynchronization Therapy Prescribed: No Contraindication/Reason for not providing: Not indicated. Will be discharged to: Home Follow Up Date (must be within 7 days from discharge): 03/16/17 Follow Up Time: 11:00 - Date & Time of Discharge Summary Date of Discharge Summary: 03/16/17 Time of Discharge Summary: 19:51
== END 2017-03-11 15:45 | disposition home or self-care (01) | DRG 291 ==
LOC: C.ER 03:31 → C.9E 05:39 → C.6T 16:24
PROVIDERS: ADMIT Internal Medicine Cardiovascular Disease; ATTEND Internal Medicine Cardiovascular Disease
DX: I11.0 Hypertensive heart disease with heart failure (principal); J18.9 Pneumonia, unspecified organism; I47.2 Ventricular tachycardia; J44.0 Chronic obstructive pulmonary disease with (acute) lower respiratory infection; I42.9 Cardiomyopathy, unspecified; J45.901 Unspecified asthma with (acute) exacerbation; I50.23 Acute on chronic systolic (congestive) heart failure; M10.9 Gout, unspecified

== ENCOUNTER 2017-07-04 10:35 | Inpatient (IN) | payer OTHER ==
[2017-07-04 10:51] VITALS: BMI 22.3
[2017-07-04] MEDS ORDERED: MethylPREDNISolone 40 mg Vial IVP STA (11:18)
[2017-07-04] MEDS ORDERED: Albuterol-Ipratrop 3 mg / 0.5 (3 ml) UD INH STA (11:18)
--- NOTE | 2017-07-04 11:26 | C.PDOC ---
History Of Present Illness 61 y/o male with history of CHF,Nonischemic cardiomyopathy, Asthma and EF of 15 % presents to ED with complaints of sob worsening for 1 week. Patient states he uses nebulizer at home with no improvement and reports mild chest tightness. Patient is speaking in full sentences and denies fever, chills, nausea or any other complaints at this time. Time Seen by Provider: 07/04/17 11:01 Chief Complaint (Nursing): Chest Pain History Per: Patient History/Exam Limitations: no limitations Onset/Duration Of Symptoms: Days Current Symptoms Are (Timing): Still Present Quality: Tightness Past Medical History Reviewed: Historical Data, Nursing Documentation, Vital Signs Vital Signs: Last Vital Signs Temp 98.6 F 07/04/17 10:52 Pulse 104 H 07/04/17 12:45 Resp 23 07/04/17 12:45 BP 98/68 L 07/04/17 13:00 Pulse Ox 99 07/04/17 14:11 - Medical History PMH: Asthma, COPD, HTN Surgical History: No Surg Hx Family History: States: No Known Family Hx - Social History Hx Alcohol Use: No Hx Substance Use: No - Immunization History Hx Tetanus Toxoid Vaccination: No Hx Influenza Vaccination: No Hx Pneumococcal Vaccination: No Review Of Systems Except As Marked, All Systems Reviewed And Found Negative. Cardiovascular: Positive for: Chest Pain Respiratory: Positive for: Shortness of Breath Physical Exam - Physical Exam Appears: Non-toxic, No Acute Distress Skin: Warm, Dry, No Rash Head: Atraumatic, Normacephalic Eye(s): bilateral: Normal Inspection Oral Mucosa: Moist Neck: Normal ROM, Supple Cardiovascular: Rhythm Regular Respiratory: Rales (bilateral), No Rhonchi, Wheezing (scattered) Gastrointestinal/Abdominal: Soft, No Tenderness, No Guarding, No Rebound Extremity: No Pedal Edema, Capillary Refill (<2 seconds) Neurological/Psych: Oriented x3 ED Course And Treatment - Laboratory Results Result Diagrams: 07/04/17 12:06 07/04/17 12:06 ECG: Interpreted By Me, Viewed By Me ECG Rhythm: Sinus Tachycardia Interpretation Of ECG: LVH and Repolarization abnormality noted Rate From EC (BPM ) O2 Sat by Pulse Oximetry: 99 (RA) Pulse Ox Interpretation: Normal Medical Decision Making Medical Decision Making: suspect chf vs ashthma - labs imaging pending 200: pt reassesed: wheezing improved. note dbnp lasix dosed dr roland accepts tele Disposition - Disposition Disposition: HOSPITALIZED Disposition Time: 14:10 Condition: FAIR - Clinical Impression Clinical Impression: Congestive heart failure, Exacerbation of asthma - Scribe Statement The provider has reviewed the documentation as recorded by the Aichaibhannah Dave All medical record entries made by the Scribe were at my direction and personally dictated by me. I have reviewed the chart and agree that the record accurately reflects my personal performance of the history, physical exam, medical decision making, and the department course for this patient. I have also personally directed, reviewed, and agree with the discharge instructions and disposition. Decision To Admit - Pt Status Changed To: Hospital Disposition Of: Inpatient - Admit Certification Admit to Inpatient:: After my assessment, the patient will require hospitalization for at least two midnights. This is because of the severity of symptoms shown, intensity of services needed, and/or the medical risk in this patient being treated as an outpatient. - InPatient: Physician Admission Certification: I certify that this patient requires 2 or more midnights of care for the following reason:: chf low ef - . Bed Request Type: Telemetry Admitting Physician: Chan Roland Patient Diagnosis: Congestive heart failure, Exacerbation of asthma
[2017-07-04] MEDS ORDERED: Albuterol-Ipratrop 3 mg / 0.5 (3 ml) UD ONE (11:51)
[2017-07-04 12:13] LABS: BASO # 0.1 K/uL (0.0-0.2); BASO % 0.8 % (0.0-2.0); EOS # 0.1 K/uL (0.0-0.7); EOS % 1.3 % (0.0-4.0); HEMOGLOBIN 15.7 g/dL (12.0-18.0); LYMPH # 0.9 K/uL (1.0-4.3); LYMPH % 11.9 % (20.0-40.0); MEAN CORPUSCULAR HEMOGLOBIN 32.2 pg (27.0-31.0); MEAN CORPUSCULAR HGB CONC 33.6 g/dL (33.0-37.0); MEAN PLATELET VOLUME 8.3 fL (7.2-11.7); MONO # 0.7 K/uL (0.0-0.8); MONO % 10.2 % (0.0-10.0); NEUT # 5.5 K/uL (1.8-7.0); NEUT % 75.8 % (50.0-75.0); RBC 4.88 Mil/uL (4.40-5.90); RED CELL DISTRIBUTION WIDTH 13.5 % (11.5-14.5); WHITE BLOOD COUNT 7.2 K/uL (4.8-10.8)
[2017-07-04 12:14] LABS: MEAN CELL VOLUME 95.8 fL (80.0-94.0)
[2017-07-04 12:16] LABS: URINE BILIRUBIN NEGATIVE (NEGATIVE); URINE BLOOD NEGATIVE (NEGATIVE); URINE CLARITY Clear (Clear); URINE COLOR Straw (YELLOW); URINE GLUCOSE (UA) NORMAL (Normal); URINE LEUKOCYTE ESTERASE NEG Leu/uL (Negative); URINE NITRATE NEGATIVE (NEGATIVE); URINE PROTEIN NEGATIVE (NEGATIVE); URINE UROBILINOGEN NORMAL mg/dL (0.2-1.0)
[2017-07-04 12:21] LABS: PROTHROMBIN TIME 11.3 SECONDS (9.7-12.2)
--- NOTE | 2017-07-04 12:24 | RAD ---
HISTORY: chest pain COMPARISON: 03/10/2017 TECHNIQUE: Chest PA and lateral FINDINGS: LUNGS: No active pulmonary disease. PLEURA: Slight blunting left costophrenic angle unchanged from prior, likely chronic pleural thickening. Rule out small pleural effusion. Right costophrenic angle is clear. No pneumothorax. CARDIOVASCULAR: Mild cardiomegaly. OSSEOUS STRUCTURES: No significant abnormalities. VISUALIZED UPPER ABDOMEN: Normal. OTHER FINDINGS: None. IMPRESSION: Mild cardiomegaly. No infiltrate. Probable chronic pleural thickening at left costophrenic angle.
[2017-07-04 12:26] LABS: ALB/GLOB RATIO 1.5 (1.0-2.1); ALBUMIN 4.5 g/dL (3.5-5.0); ALT/SGPT 43 U/L (21-72); AST/SGOT 40 U/L (17-59); BLOOD UREA NITROGEN 24 mg/dL (9-20); CALCIUM 9.4 mg/dl (8.6-10.4); GFR AFRICAN-AMERICAN > 60; GFR NON-AFRICAN AMERICAN 56
[2017-07-04 12:39] LABS: B-TYPE NATRIURETIC PEPTIDE 9370 pg/mL (0-900)
--- NOTE | 2017-07-04 17:29 | CP.PCM.HP ---
History of Present Illness - History of Present Illness History of Present Illness: 61 years old male complaining of increasing shortness of breath for the past one week. He used his bronchodilator by nebulizer without any improvement. He denies any fever, any chills. In the ED his Pro-BNP:9363 his TNI was normal. He is known to have a bronchial asthma, a dilated cardiomyopathy with severe LV systolic dysfunction. In the ED, he received a total of Lasix 40 mg IV and Albuterol by nebulizer with relief of his SOB. Present on Admission - Present on Admission Any Indicators Present on Admission: No Review of Systems - Cardiovascular Cardiovascular: Chest Pain, Dyspnea - Respiratory Respiratory: Dyspnea, Wheezing Past Patient History - Infectious Disease Hx of Infectious Diseases: None - Past Medical History & Family History Past Medical History?: Yes - Past Social History Smoking Status: Never Smoked Alcohol: None Drugs: Denies Home Situation {Lives}: With Family Domestic Violence: Negative - CARDIAC Hx Hypertension: Yes - PULMONARY Hx Asthma: Yes Hx Chronic Obstructive Pulmonary Disease (COPD): Yes - MUSCULOSKELETAL/RHEUMATOLOGICAL Hx Falls: No Hx Gout: Yes - PSYCHIATRIC Hx Substance Use: No - SURGICAL HISTORY Other/Comment: as per pt. he had heart and lung sx in [place] in 1990 - ANESTHESIA Hx Anesthesia: Yes Hx Anesthesia Reactions: No Hx Malignant Hyperthermia: No Meds Allergies/Adverse Reactions: Allergies Allergy/AdvReac Type Severity Reaction Status Date / Time No Known Allergies Allergy Verified 07/04/17 10:48 Physical Exam - Constitutional Appears: No Acute Distress, Chronically Ill - Head Exam Head Exam: NORMOCEPHALIC - Eye Exam Eye Exam: Normal appearance - ENT Exam ENT Exam: Normal Exam - Neck Exam Neck exam: Positive for: Normal Inspection - Respiratory Exam Respiratory Exam: Wheezes Additional comments: Rales at both bases. - Cardiovascular Exam Cardiovascular Exam: Tachycardia, REGULAR RHYTHM, Systolic Murmur - GI/Abdominal Exam GI & Abdominal Exam: Normal Bowel Sounds, Soft - Rectal Exam Rectal Exam: Deferred - Extremities Exam Extremities exam: Positive for: normal inspection - Back Exam Back exam: NORMAL INSPECTION - Neurological Exam Neurological exam: Alert, Normal Gait, Oriented x3 - Psychiatric Exam Psychiatric exam: Anxious - Skin Skin Exam: Dry, Intact, Normal Color, Warm Results - Vital Signs Recent Vital Signs: Last Vital Signs Temp 98.6 F 07/04/17 10:52 Pulse 111 H 07/04/17 15:28 Resp 20 07/04/17 15:28 BP 127/98 H 07/04/17 15:43 Pulse Ox 98 07/04/17 15:28 - Labs Result Diagrams: 07/04/17 12:06 07/04/17 12:06 Labs: Laboratory Results - last 24 hr 07/04/17 07/04/17 07/04/17 12:06 12:06 12:06 WBC 7.2 RBC 4.88 Hgb 15.7 Hct 46.8 MCV 95.8 H D MCH 32.2 H MCHC 33.6 RDW 13.5 Plt Count 223 MPV 8.3 Neut % (Auto) 75.8 H Lymph % (Auto) 11.9 L [place] % (Auto) 10.2 H Eos % (Auto) 1.3 Baso % (Auto) 0.8 Neut # 5.5 Lymph # 0.9 L [place] # 0.7 Eos # 0.1 Baso # 0.1 PT 11.3 INR 1.0 APTT 37 H Sodium Potassium Chloride Carbon Dioxide Anion Gap BUN Creatinine Est GFR ( Amer) Est GFR (Non-Af Amer) Random Glucose Calcium Total Bilirubin AST ALT Alkaline Phosphatase Troponin I NT-Pro-B Natriuret Pep Total Protein Albumin Globulin Albumin/Globulin Ratio Urine Color Straw Urine Clarity Clear Urine pH 5.0 Ur Specific [place] 1.008 Urine Protein Negative Urine Glucose (UA) Normal Urine Ketones Negative Urine Blood Negative Urine Nitrate Negative Urine Bilirubin Negative Urine Urobilinogen Normal Ur Leukocyte Esterase Neg Urine WBC (Auto) < 1 Urine RBC (Auto) < 1 07/04/17 12:06 WBC RBC Hgb Hct MCV MCH MCHC RDW Plt Count MPV Neut % (Auto) Lymph % (Auto) [place] % (Auto) Eos % (Auto) Baso % (Auto) Neut # Lymph # [place] # Eos # Baso # PT INR APTT Sodium 137 Potassium 4.5 Chloride 103 Carbon Dioxide 26 Anion Gap 13 BUN 24 H Creatinine 1.3 Est GFR ( Amer) > 60 Est GFR (Non-Af Amer) 56 Random Glucose 85 Calcium 9.4 Total Bilirubin 1.0 AST 40 ALT 43 Alkaline Phosphatase 62 Troponin I 0.0440 NT-Pro-B Natriuret Pep 9370 H Total Protein 7.5 Albumin 4.5 Globulin 3.0 Albumin/Globulin Ratio 1.5 Urine Color Urine Clarity Urine pH Ur Specific [place] Urine Protein Urine Glucose (UA) Urine Ketones Urine Blood Urine Nitrate Urine Bilirubin Urine Urobilinogen Ur Leukocyte Esterase Urine WBC (Auto) Urine RBC (Auto) Assessment & Plan (1) Acute on chronic systolic (congestive) heart failure Assessment and Plan: To continue IV diuretics, ELEN inhibitors. Status: Acute (2) Exacerbation of asthma Assessment and Plan: Bronchodilators by nebulizers. Status: Acute Decision To Admit - Pt Status Changed To: Hospital Disposition Of: Inpatient - Admit Certification Admit to Inpatient:: After my assessment, the patient will require hospitalization for at least two midnights. This is because of the severity of symptoms shown, intensity of services needed, and/or the medical risk in this patient being treated as an outpatient. - InPatient: Physician Admission Certification:: After my assessments, the patient requires hospitalization for at two midnights. - . Bed Request Type: Telemetry Admitting Physician: Chan Roland
[2017-07-04] MEDS ORDERED: Albuterol 0.083% Inhal Sol (2.5 mg/3 mL) UD IH PRN (17:48)
[2017-07-04] MEDS: Enoxaparin 40 mg Syringe SC SCH (18:28)
[2017-07-04] MEDS ORDERED: Enoxaparin 40 mg Syringe ONE (18:29)
[2017-07-05 07:03] LABS: ALB/GLOB RATIO 1.6 (1.0-2.1); ALBUMIN 4.1 g/dL (3.5-5.0); ALT/SGPT 37 U/L (21-72); AST/SGOT 26 U/L (17-59); BLOOD UREA NITROGEN 32 mg/dL (9-20); CALCIUM 9.4 mg/dl (8.6-10.4); GFR AFRICAN-AMERICAN > 60; GFR NON-AFRICAN AMERICAN > 60; HDL CHOLESTEROL 69 mg/dL (30-70); MAGNESIUM 1.9 mg/dL (1.6-2.3)
[2017-07-05 07:13] LABS: LDL CHOLESTEROL 147 mg/dL (0-129)
[2017-07-05 07:15] LABS: FREE T4 1.13 ng/dL (0.78-2.19)
[2017-07-05] MEDS: Enoxaparin 40 mg Syringe SC SCH (09:47)
--- NOTE | 2017-07-05 18:16 | CP.PCM.PN ---
Subjective - Date & Time of Evaluation Date of Evaluation: 07/05/17 Time of Evaluation: 18:14 - Subjective Subjective: Patient is less SOB today. Still tachycardic with a dry cough. Objective - Vital Signs/Intake and Output Vital Signs (last 24 hours): Temp Pulse Resp BP Pulse Ox 97.8 F 106 H 20 101/67 96 07/05/17 15:58 07/05/17 15:58 07/05/17 15:58 07/05/17 15:58 07/05/17 15:58 Intake and Output: 07/05/17 07/05/17 06:59 18:59 Intake Total 240 Balance 240 - Medications Medications: Current Medications Albuterol Sulfate (Albuterol 0.083% Inhal Gisel (2.5 Mg/3 Ml) Ud) 2.5 mg IH RQ6 PRN PRN Reason: Shortness of Breath Allopurinol (Zyloprim) 100 mg PO DAILY [facility] Last Admin: 07/05/17 09:46 Dose: 100 mg Docusate Sodium (Colace) 100 mg PO BID PRN PRN Reason: Constipation Last Admin: 07/05/17 09:46 Dose: 100 mg Enoxaparin Sodium (Lovenox) 40 mg SC DAILY [facility] Last Admin: 07/05/17 09:47 Dose: 40 mg Furosemide (Lasix) 20 mg IVP BID [facility] Last Admin: 07/05/17 09:47 Dose: 20 mg Losartan Potassium (Cozaar) 50 mg PO DAILY [facility] Last Admin: 07/05/17 09:46 Dose: 50 mg Montelukast Sodium (Singulair) 10 mg PO [facility] Spironolactone (Aldactone) 25 mg PO DAILY [facility] Last Admin: 07/05/17 09:46 Dose: 25 mg - Labs Labs: 07/04/17 12:06 07/05/17 06:40 PT 11.3 SECONDS (9.7-12.2) 07/04/17 12:06 INR 1.0 07/04/17 12:06 APTT 37 SECONDS (21-34) H 07/04/17 12:06 - Constitutional Appears: No Acute Distress - Head Exam Head Exam: NORMAL INSPECTION - Eye Exam Eye Exam: Normal appearance - ENT Exam ENT Exam: Normal Exam - Neck Exam Neck Exam: Normal Inspection - Respiratory Exam Respiratory Exam: Rales Additional comments: Few rales at the right base. - Cardiovascular Exam Cardiovascular Exam: Tachycardia, REGULAR RHYTHM, Murmur - GI/Abdominal Exam GI & Abdominal Exam: Soft, Normal Bowel Sounds - Rectal Exam Rectal Exam: Deferred - Exam Exam: NORMAL INSPECTION - Extremities Exam Extremities Exam: Normal Inspection - Back Exam Back Exam: NORMAL INSPECTION - Neurological Exam Neurological Exam: Alert, Awake, Normal Gait, Oriented x3 - Psychiatric Exam Psychiatric exam: Anxious - Skin Skin Exam: Dry, Intact, Normal Color, Warm Assessment and Plan (1) Acute on chronic systolic (congestive) heart failure Assessment & Plan: To continue Diuretics. Recheck serum electrolytes in AM. Status: Acute (2) Exacerbation of asthma Status: Acute
[2017-07-05] MEDS ORDERED: guaiFENesin DM 200 mg-20 mg/10 ml UD PO PRN (18:17)
[2017-07-06 07:01] LABS: ALB/GLOB RATIO 1.4 (1.0-2.1); ALBUMIN 3.8 g/dL (3.5-5.0); CALCIUM 9.4 mg/dl (8.6-10.4); URIC ACID 9.6 mg/dL (3.5-8.5)
[2017-07-06 08:02] VITALS: O2SAT 98
[2017-07-06] MEDS: Enoxaparin 40 mg Syringe SC SCH (09:52)
[2017-07-06 15:53] VITALS: TEMP 97.9
--- NOTE | 2017-07-06 18:32 | CP.PCM.PN ---
Subjective - Date & Time of Evaluation Date of Evaluation: 07/06/17 Time of Evaluation: 18:29 - Subjective Subjective: Patient has no complaint of SOB. Afebrile. Objective - Vital Signs/Intake and Output Vital Signs (last 24 hours): Temp Pulse Resp BP Pulse Ox 97.9 F 99 H 18 105/73 98 07/06/17 15:52 07/06/17 15:52 07/06/17 15:52 07/06/17 15:52 07/06/17 15:52 Intake and Output: 07/06/17 07/06/17 06:59 18:59 Intake Total 240 Balance 240 - Medications Medications: Current Medications Albuterol Sulfate (Albuterol 0.083% Inhal [place] (2.5 Mg/3 Ml) Ud) 2.5 mg IH RQ6 PRN PRN Reason: Shortness of Breath Allopurinol (Zyloprim) 100 mg PO DAILY [facility] Last Admin: 07/06/17 09:50 Dose: 100 mg Docusate Sodium (Colace) 100 mg PO BID PRN PRN Reason: Constipation Last Admin: 07/05/17 09:46 Dose: 100 mg Enoxaparin Sodium (Lovenox) 40 mg SC DAILY [facility] Last Admin: 07/06/17 09:52 Dose: 40 mg Furosemide (Lasix) 20 mg IVP BID [facility] Last Admin: 07/06/17 09:50 Dose: 20 mg Guaifenesin/Dextromethorphan (Robitussin Dm) 10 ml PO Q4H PRN PRN Reason: Cough and congestion Losartan Potassium (Cozaar) 50 mg PO DAILY [facility] Last Admin: 07/06/17 09:50 Dose: 50 mg Montelukast Sodium (Singulair) 10 mg PO HS [facility] Last Admin: 07/05/17 22:01 Dose: 10 mg Spironolactone (Aldactone) 25 mg PO DAILY [facility] Last Admin: 07/06/17 09:50 Dose: 25 mg - Labs Labs: 07/04/17 12:06 07/06/17 06:22 PT 11.3 SECONDS (9.7-12.2) 07/04/17 12:06 INR 1.0 07/04/17 12:06 APTT 37 SECONDS (21-34) H 07/04/17 12:06 - Constitutional Appears: No Acute Distress - Eye Exam Eye Exam: Normal appearance - ENT Exam ENT Exam: Normal Exam - Neck Exam Neck Exam: Normal Inspection - Respiratory Exam Respiratory Exam: Clear to Ausculation Bilateral, NORMAL BREATHING PATTERN - Cardiovascular Exam Cardiovascular Exam: REGULAR RHYTHM, Murmur - GI/Abdominal Exam GI & Abdominal Exam: Soft, Normal Bowel Sounds - Rectal Exam Rectal Exam: Deferred - Exam Exam: NORMAL INSPECTION - Extremities Exam Extremities Exam: Full ROM, Normal Inspection - Back Exam Back Exam: NORMAL INSPECTION - Neurological Exam Neurological Exam: Alert, Awake, Normal Gait, Oriented x3 - Psychiatric Exam Psychiatric exam: Anxious - Skin Skin Exam: Dry, Intact Assessment and Plan (1) Acute on chronic systolic (congestive) heart failure Assessment & Plan: Discharge home on same medications. F/U with me in one week to check serum electrolytes. Status: Resolved (2) Exacerbation of asthma Status: Resolved
[2017-07-06 18:39] VITALS: BP 110/78; PULSE 75; RESP 20
--- NOTE | 2017-07-07 07:46 | PCM.HF ---
Heart Failure Core Measure - Heart Failure Ejection Fraction: Less Than 40 % ELEN Inhibitor Prescribed: No Contraindication/Reason for not providing: on elen Beta-Caitie Prescribed: None Contraindication/Reason for not providing: asthma Angiotensin II Receptor Caitie Prescribed: Yes AnticoagulationTherapy for Atrial Fibrillation/Atrialflutter: No Contraindication/Reason for not providing: no hx of a fib Aldosterone Antagonist Prescribed: Yes Hydralazine Nitrate Prescribed: No Contraindication/Reason for not providing: sherin running low /100's Implantable Cardioverter Defibrillator Therapy: No Contraindication/Reason for not providing: medical management as per cardiology Cardiac Resynchronization Therapy Prescribed: No Contraindication/Reason for not providing: NSR /medical management as per cardio - Follow up Follow Up Date (must be within 7 days from discharge): 07/11/17 Follow Up Time: 09:00
--- NOTE | 2017-07-07 08:55 | CARD ---
APPROVED REPORT EKG Measurement Heart [id number] <Conclusion> Sinus tachycardia Possible Left atrial enlargement Left axis deviation Left ventricular hypertrophy with QRS widening and repolarization abnormality Abnormal ECG
== END 2017-07-06 19:25 | disposition home or self-care (01) | DRG 292 ==
LOC: C.ER 10:35 → C.9E 12:43 → C.6T 18:11
PROVIDERS: ADMIT Internal Medicine Cardiovascular Disease; ATTEND Internal Medicine Cardiovascular Disease
DX: I11.0 Hypertensive heart disease with heart failure (principal); J45.901 Unspecified asthma with (acute) exacerbation; I42.0 Dilated cardiomyopathy; I50.23 Acute on chronic systolic (congestive) heart failure; J44.9 Chronic obstructive pulmonary disease, unspecified; Z68.22 Body mass index [BMI] 22.0-22.9, adult

== ENCOUNTER 2017-10-08 19:16 | Emergency (ER) | payer OTHER ==
[2017-10-08 19:17] VITALS: BMI 22.3
[2017-10-08] MEDS ORDERED: Albuterol-Ipratrop 3 mg / 0.5 (3 ml) UD ONE ×2 (19:59→20:36)
[2017-10-08] MEDS ORDERED: Albuterol-Ipratrop 3 mg / 0.5 (3 ml) UD INH STA ×3 (20:17→20:18)
[2017-10-08] MEDS ORDERED: MethylPREDNISolone 40 mg Vial IVP STA (20:17)
--- NOTE | 2017-10-08 20:24 | C.PDOC ---
History Of Present Illness 62 year old male, whose PMHx includes Asthma and COPD, presents to the ED for evaluation of worsening asthma symptoms and wheezing which began a few days ago. Patient was unable to find relief after using steroid treatments. Patient denies fever, chills, chest pain. Time Seen by Provider: 10/08/17 20:15 Chief Complaint (Nursing): Shortness Of Breath History Per: Patient History/Exam Limitations: no limitations Onset/Duration Of Symptoms: Days Current Symptoms Are (Timing): Still Present Quality: denies: "Pain" Current Respiratory Medications: See Home Med List Associated Symptoms: denies: Fever, Chills Additional History Per: Patient Past Medical History Reviewed: Historical Data, Nursing Documentation, Vital Signs Vital Signs: Last Vital Signs Temp 99.1 F 10/08/17 21:35 Pulse 92 H 10/08/17 21:35 Resp 16 10/08/17 21:37 BP 121/85 10/08/17 21:35 Pulse Ox 98 10/09/17 00:12 - Medical History PMH: Asthma, COPD, HTN Surgical History: No Surg Hx Family History: States: Unknown Family Hx - Social History Hx Alcohol Use: No Hx Substance Use: No - Immunization History Hx Tetanus Toxoid Vaccination: No Hx Influenza Vaccination: No Hx Pneumococcal Vaccination: No Review Of Systems Constitutional: Negative for: Fever, Chills Cardiovascular: Negative for: Chest Pain Respiratory: Positive for: Wheezing Physical Exam - Physical Exam Appears: Non-toxic, No Acute Distress Skin: Normal Color, Warm, Dry Head: Atraumatic, Normacephalic Eye(s): bilateral: Normal Inspection Oral Mucosa: Moist Neck: Supple Chest: Symmetrical, No Deformity, No Tenderness Cardiovascular: Rhythm Regular, No Murmur Respiratory: No Rales, No Rhonchi, Wheezing (diffuse ) Extremity: Normal ROM, Capillary Refill (less than 2 seconds ) Neurological/Psych: Oriented x3, Normal Speech, Normal Cognition ED Course And Treatment - Laboratory Results Result Diagrams: 10/08/17 20:28 10/08/17 20:28 ECG: Interpreted By Me, Viewed By Me ECG Rhythm: Sinus Tachycardia Interpretation Of ECG: Sinus Tachycardia at rate 107 bpm with LVH and repolarization. Rate From EC O2 Sat by Pulse Oximetry: 98 (on RA) Pulse Ox Interpretation: Normal Medical Decision Making Medical Decision Making: Progress: Bloodwork, CXR, EKG ordered and reviewed Albuterol INH and Solu-Medrol administered. 21:31 This patient is choosing to leave against medical advice. I have personally explained to the patient that choosing to do so may result in permanent bodily harm or . I have discussed at great length that without further evaluation and monitoring there may be unforeseen circumstances and/or deterioration causing permanent bodily harm or as a result of their choice. The patient is alert, oriented, and shows the mental capacity to make clear decisions regarding the patients health care at this time. The patient continues to wish to leave against medical advice. In light of the patients decision to leave AMA, follow-up has been arranged and the patient is aware of the importance of following up as instructed. The patient has been advised that they should return to the ED immediately if they change their mind at any time, or if their condition begins to change or worsen in any way. wheezing improving, butpersistent. not improving outpt, already on steriods. pt already on augmentin. pt refuses admission signs ama. Disposition - Disposition Referrals: [facility] [Outside] [facility] [Outside] Disposition: AGAINST MEDICAL ADVICE Disposition Time: 12:00 Condition: STABLE Additional Instructions: return to any er with any worsening symptoms or concerns. Prescriptions: Prednisone 50 mg PO DAILY #5 tablet Instructions: Asthma in Adults, Heart Failure, Adult (DC), Leaving Against Medical Advice Forms: [facility] (Australian) - Clinical Impression Clinical Impression: Asthma, Congestive heart failure - Scribe Statement The provider has reviewed the documentation as recorded by the Scribe (Erna Syed) Provider Attestation: All medical record entries made by the Scribe were at my direction and personally dictated by me. I have reviewed the chart and agree that the record accurately reflects my personal performance of the history, physical exam, medical decision making, and the department course for this patient. I have also personally directed, reviewed, and agree with the discharge instructions and disposition.
[2017-10-08 20:31] LABS: BASO % 0.3 % (0.0-2.0); EOS % 0.1 % (0.0-4.0); LYMPH # 0.4 K/uL (1.0-4.3); LYMPH % 4.1 % (20.0-40.0); MEAN CELL VOLUME 95.2 fL (80.0-94.0); MEAN CORPUSCULAR HGB CONC 33.6 g/dL (33.0-37.0); MEAN PLATELET VOLUME 8.2 fL (7.2-11.7); MONO # 0.7 K/uL (0.0-0.8); MONO % 6.8 % (0.0-10.0); NEUT # 9.5 K/uL (1.8-7.0); NEUT % 88.7 % (50.0-75.0); PLATELET COUNT 237 K/uL (130-400); RBC 4.99 Mil/uL (4.40-5.90); RED CELL DISTRIBUTION WIDTH 13.1 % (11.5-14.5); WHITE BLOOD COUNT 10.6 K/uL (4.8-10.8)
[2017-10-08 20:39] LABS: PROTHROMBIN TIME 11.1 SECONDS (9.7-12.2)
[2017-10-08 20:43] LABS: ALB/GLOB RATIO 1.4 (1.0-2.1); ALBUMIN 4.2 g/dL (3.5-5.0); CALCIUM 9.5 mg/dl (8.6-10.4); GFR AFRICAN-AMERICAN > 60; GFR NON-AFRICAN AMERICAN > 60
[2017-10-08 20:45] LABS: ALT/SGPT 93 U/L (21-72); AST/SGOT 55 U/L (17-59); BLOOD UREA NITROGEN 31 mg/dL (9-20)
[2017-10-08 20:53] VITALS: O2SAT 98
[2017-10-08 20:55] LABS: B-TYPE NATRIURETIC PEPTIDE 11700 pg/mL (0-900)
[2017-10-08 21:37] VITALS: BP 121/85; PULSE 92; RESP 16; TEMP 99.1
[2017-10-08 21:39] LABS: LYMPHOCYTE 3 % (20-40); MONOCYTE 3 % (0-10); NEUTROPHIL 94 % (50-75); PLATELET ESTIMATE NORMAL (NORMAL); TOTAL CELLS COUNTED 100
--- NOTE | 2017-10-09 11:06 | RAD ---
PROCEDURE: CHEST RADIOGRAPH, 1 VIEW HISTORY: Chest pain COMPARISON: Comparison chest 07/04/2017 FINDINGS: LUNGS: Minor bibasilar atelectasis/scarring PLEURA: No pneumothorax or pleural fluid seen. CARDIOVASCULAR: Cardiomegaly marked cardiomegaly with ectatic uncoiled aorta. OSSEOUS STRUCTURES: No significant abnormalities. VISUALIZED UPPER ABDOMEN: Normal. OTHER FINDINGS: None. IMPRESSION: Minor bibasilar atelectasis/scarring
--- NOTE | 2017-10-10 12:27 | CARD ---
APPROVED REPORT EKG Measurement Heart [id number] <Conclusion> Sinus tachycardia Possible Left atrial enlargement Left axis deviation Left ventricular hypertrophy with QRS widening and repolarization abnormality Abnormal ECG
== END 2017-10-08 21:47 | disposition left against medical advice (07) ==
LOC: C.ER 19:16
DX: J45.909 Unspecified asthma, uncomplicated (principal); I50.9 Heart failure, unspecified
CPT/HCPCS: 71045; 80053; 83880; 84484; 85025; 85610; 85730; 93005; 94640; 96374; 99285; J2920

== ENCOUNTER 2018-02-04 14:53 | Emergency (ER) | payer OTHER ==
[2018-02-04 14:53] VITALS: BMI 22.3
[2018-02-04] MEDS ORDERED: Albuterol-Ipratrop 3 mg / 0.5 (3 ml) UD INH STA (16:10)
[2018-02-04] MEDS ORDERED: Albuterol 0.083% Inhal Sol (2.5 mg/3 mL) UD IH STA ×2 (16:10→17:42)
--- NOTE | 2018-02-04 16:11 | C.PDOC ---
History Of Present Illness 62 year old male presents to ED complaining of shortness of breath and wheezing for the last three days. Patient reports it worsens with walking and exertion. Patient has history of asthma and CAD, HTN. Patient states current symptoms are similar to prior asthma exacerbations. He admits to productive cough, but denies chest pain, fever, leg edema, palpitations. Time Seen by Provider: 02/04/18 15:17 Chief Complaint (Nursing): Shortness Of Breath History Per: Patient History/Exam Limitations: no limitations Onset/Duration Of Symptoms: Days Current Symptoms Are (Timing): Still Present Exacerbating Factor(s): Exertion, Other (walking) Current Respiratory Medications: See Home Med List Recent travel outside of the [place]: No Past Medical History Reviewed: Historical Data, Nursing Documentation, Vital Signs Vital Signs: Last Vital Signs Temp 97.9 F 02/04/18 19:18 Pulse 91 H 02/04/18 19:18 Resp 22 02/04/18 19:18 BP 100/62 02/04/18 19:18 Pulse Ox 97 02/04/18 19:18 - Medical History PMH: Asthma, CHF, COPD, HTN Surgical History: Coronary Stent Family History: States: No Known Family Hx - Social History Hx Alcohol Use: No Hx Substance Use: No - Immunization History Hx Tetanus Toxoid Vaccination: No Hx Influenza Vaccination: No Hx Pneumococcal Vaccination: No Review Of Systems Constitutional: Negative for: Fever Cardiovascular: Negative for: Chest Pain, Palpitations Respiratory: Positive for: Cough (productive), Shortness of Breath, Wheezing Gastrointestinal: Negative for: Nausea, Vomiting Musculoskeletal: Negative for: Other (leg edema) Skin: Negative for: Rash Neurological: Negative for: Headache Physical Exam - Physical Exam Appears: Well, Non-toxic, No Acute Distress, Other (speaking in full sentences. ) Skin: Warm, Dry Head: Normacephalic Eye(s): bilateral: Normal Inspection Oral Mucosa: Moist Neck: Supple Cardiovascular: Rhythm Regular Respiratory: Normal Breath Sounds, No Rales, No Rhonchi, Wheezing (difffuse exp wheezing B/L ) Gastrointestinal/Abdominal: Normal Exam, Bowel Sounds, Soft, No Tenderness Extremity: Normal ROM, No Pedal Edema, No Calf Tenderness, Capillary Refill (< 2 sec all digits ) Pulses: Left Dorsalis Pedis: Normal, Right Dorsalis Pedis: Normal Neurological/Psych: Oriented x3 ED Course And Treatment - Laboratory Results Result Diagrams: 02/04/18 16:24 02/04/18 16:24 ECG: Interpreted By Me, Viewed By Me (NSR 85 bpm, left axis deviation, LBBB, ST depressions V5-V6 - unchanged from prior EKG 10/08/17) ECG Interpretation: Abnormal O2 Sat by Pulse Oximetry: 99 (RA) Pulse Ox Interpretation: Normal - Other Rad CXR X-Ray: Read By Radiologist Interpretation: Accession No. : [id number]. Patient Name / ID : JAH RODRIGUEZ / [id number]. Exam Date : 02/04/2018 16:12:07 ( Approved ). Study Comment : Sex / Age : M / 62Y. Creator : Karyna Obrien MD. Dictator : Karyna Obrien MD. Train System Operator : Cash Control Specialist : Karyna Obrien MD. Approver2 : Report Date : 02/04/2018 16:42:00. My Comment : . HISTORY: SOB. COMPARISON: Chest x-ray performed 10/08/17. TECHNIQUE: Chest, one view. FINDINGS: LUNGS: Increased lucencies especially within the bilateral upper lung rizzo compatible with underlying emphysema. No focal consolidation. Subsegmental bibasilar atelectasis. Biapical pleural thickening. Chronic appearing interstitial markings. Please note that chest x-ray has limited sensitivity for the detection of pulmonary masses. PLEURA: No significant pleural effusion identified. No definite pneumothorax . CARDIOVASCULAR: Marked cardiomegaly. Ectatic aorta. Atherosclerotic calcifications of the aorta. OSSEOUS STRUCTURES: Degenerative changes. Osseous demineralization. VISUALIZED UPPER ABDOMEN: Unremarkable. OTHER FINDINGS: None. IMPRESSION: Marked cardiomegaly. Ectatic aorta. Atherosclerotic calcifications. Biapical pleural thickening. Mild subsegmental bibasilar atelectasis. Chronic appearing interstitial markings. Emphysematous changes. Progress Note: Blood work, EKG, CXR ordered and reviewed. Patient given IV solumedrol, nebulizer treatments. 7:30pm- On reassessment, patient reports significant improvement. On exam, he has good air entrt B/L without wheezing or accessory muslce use. He would like to be discharged home, has follow up with his PMD in tuesday. BNP is elevated, however clinically patient has no rales or edema, and CXR is clear. Patient given Rxs for prednisone, albuterol and instructed to follow up with PMD as scheduled. He understands he should return to ED immediately if symptoms worsen. Reevaluation Time: 18:10 Reassessment Condition: Improved (On reassessment, patient reports mild improvement. (+) diffuse expiratory wheezing B/L . IV Magensium sulfate and SC terbutaline ordered.) Critical Care Time - Critical Care Note Total Time (in mins): 40 Documented critical care: time excludes all time spent performing seperately billable procedures. Disposition Counseled Patient/Family Regarding: Studies Performed, Diagnosis, Need For Followup, Rx Given - Disposition Referrals: Chan Roland MD [Staff Provider] - Disposition: HOME/ ROUTINE Disposition Time: 19:30 Condition: STABLE Additional Instructions: FOLLOW UP WITH DR ROLAND SCHEDULED ON TuesdayFEB 07 USE MEDICATIONS DIRECTED INCREASE LASIX TO 40MG NEEDED RETURN TO ER IMMEDIATELY IF SYMPTOMS WORSEN Prescriptions: Albuterol HFA [Ventolin HFA 90 mcg/actuation (8 g)] 0.09 mg IH Q4 PRN #1 puff PRN Reason: Wheezing predniSONE [predniSONE Tab] 60 mg PO DAILY #12 tab Instructions: Asthma, Adult (DC) Forms: [employer] (Wolof) Print Language: K[place]ILI - Clinical Impression Clinical Impression: Asthma exacerbation, Chronic CHF - Scribe Statement The provider has reviewed the documentation as recorded by the Gretta Ramirez Edison Provider Attestation: All medical record entries made by the Gretta were at my direction and personally dictated by me. I have reviewed the chart and agree that the record accurately reflects my personal performance of the history, physical exam, medical decision making, and the department course for this patient. I have also personally directed, reviewed, and agree with the discharge instructions and disposition.
[2018-02-04 16:27] LABS: BASO # 0.1 K/uL (0.0-0.2); BASO % 0.9 % (0.0-2.0); HEMOGLOBIN 15.3 g/dL (12.0-18.0); LYMPH # 0.3 K/uL (1.0-4.3); LYMPH % 3.7 % (20.0-40.0); MEAN CELL VOLUME 95.7 fL (80.0-94.0); MEAN CORPUSCULAR HEMOGLOBIN 33.6 pg (27.0-31.0); MEAN CORPUSCULAR HGB CONC 35.1 g/dL (33.0-37.0); MEAN PLATELET VOLUME 7.6 fL (7.2-11.7); MONO # 0.5 K/uL (0.0-0.8); MONO % 6.9 % (0.0-10.0); NEUT % 88.5 % (50.0-75.0); PLATELET COUNT 270 K/uL (130-400); RBC 4.56 Mil/uL (4.40-5.90); RED CELL DISTRIBUTION WIDTH 14.3 % (11.5-14.5); WHITE BLOOD COUNT 6.8 K/uL (4.8-10.8)
[2018-02-04] MEDS ORDERED: Albuterol 0.083% Inhal Sol (2.5 mg/3 mL) UD ONE (16:35)
[2018-02-04 16:40] LABS: ALB/GLOB RATIO 1.7 (1.0-2.1); ALBUMIN 4.1 g/dL (3.5-5.0); ALT/SGPT 36 U/L (21-72); AST/SGOT 27 U/L (17-59); BLOOD UREA NITROGEN 23 mg/dL (9-20); CALCIUM 9.7 mg/dl (8.6-10.4); GFR NON-AFRICAN AMERICAN > 60
--- NOTE | 2018-02-04 16:43 | RAD ---
HISTORY: SOB COMPARISON: Chest x-ray performed 10/08/17 TECHNIQUE: Chest, one view. FINDINGS: LUNGS: Increased lucencies especially within the bilateral upper lung rizzo compatible with underlying emphysema. No focal consolidation. Subsegmental bibasilar atelectasis. Biapical pleural thickening. Chronic appearing interstitial markings. Please note that chest x-ray has limited sensitivity for the detection of pulmonary masses. PLEURA: No significant pleural effusion identified. No definite pneumothorax . CARDIOVASCULAR: Marked cardiomegaly. Ectatic aorta. Atherosclerotic calcifications of the aorta. OSSEOUS STRUCTURES: Degenerative changes. Osseous demineralization. VISUALIZED UPPER ABDOMEN: Unremarkable. OTHER FINDINGS: None. IMPRESSION: Marked cardiomegaly. Ectatic aorta. Atherosclerotic calcifications. Biapical pleural thickening. Mild subsegmental bibasilar atelectasis. Chronic appearing interstitial markings. Emphysematous changes.
[2018-02-04 16:52] LABS: B-TYPE NATRIURETIC PEPTIDE 12400 pg/mL (0-900); CK-MB 2.02 ng/mL (0.0-3.38)
[2018-02-04] MEDS ORDERED: Magnesium Sulfate 1 gm in D5W 1 GM/100 ML BAG IV ONE (18:13)
[2018-02-04] MEDS ORDERED: Magnesium Sulfate 1 gm in D5W 1 GM/100 ML BAG IV STA (18:13)
[2018-02-04 18:25] LABS: LYMPHOCYTE 8 % (20-40); MONOCYTE 10 % (0-10); NEUTROPHIL 82 % (50-75); PLATELET ESTIMATE NORMAL (NORMAL); TOTAL CELLS COUNTED 100
[2018-02-04] MEDS ORDERED: Magnesium Sulfate 1 gm in D5W 2 GM/200 ML BAG IVPB ONE (18:31)
[2018-02-04 19:20] VITALS: BP 100/62; PULSE 91; RESP 22; TEMP 97.9
[2018-02-09 10:09] VITALS: O2SAT 99
== END 2018-02-04 19:52 | disposition home or self-care (01) ==
LOC: C.ER 14:53
DX: J45.901 Unspecified asthma with (acute) exacerbation (principal); I50.9 Heart failure, unspecified
CPT/HCPCS: 71045; 80053; 82550; 82553; 83880; 84484; 85025; 94640; 96365; 96366; 96372; 96375; 99284; J2930; J3105; J3475

== ENCOUNTER 2018-07-01 13:37 | Inpatient (IN) | payer OTHER | END 2018-07-07 16:55 | disposition home or self-care (01) | LOC: C.6T 07-02 02:20 → C.ER 13:37 → C.9E 15:29 → C.6T 22:04 ==

== ENCOUNTER 2018-08-16 04:41 | Emergency (ER) | payer OTHER ==
[2018-08-16 04:43] VITALS: BMI 22.3
[2018-08-16] MEDS ORDERED: Albuterol-Ipratrop 3 mg / 0.5 (3 ml) UD ONE ×2 (04:59→05:43)
[2018-08-16 05:08] VITALS: TEMP 97.6
[2018-08-16] MEDS: Albuterol-Ipratrop 3 mg / 0.5 (3 ml) UD IH SCH ×3 (05:35→06:03)
--- NOTE | 2018-08-16 05:49 | C.PDOC ---
History Of Present Illness 63 year old male with Hx of asthma and CHF presents with increased SOB over the past 4 days associated with dizziness. He reports being seen by Dr. Roland who put patient on prednisone tab without relief. Patient reports today because he has had worsening cough lasting longer than usual. Denies fever or vomiting. Time Seen by Provider: 08/16/18 05:07 Chief Complaint (Nursing): Shortness Of Breath History Per: Patient History/Exam Limitations: no limitations Onset/Duration Of Symptoms: Days Current Symptoms Are (Timing): Still Present Current Respiratory Medications: See Home Med List Associated Symptoms: denies: Fever, Other (Vomiting) Past Medical History Reviewed: Historical Data, Nursing Documentation, Vital Signs Vital Signs: Last Vital Signs Temp 97.6 F 08/16/18 05:02 Pulse 92 H 08/16/18 05:02 Resp 20 08/16/18 05:19 BP 117/80 08/16/18 05:02 Pulse Ox 99 08/16/18 05:02 - Medical History PMH: Asthma, CHF, COPD, HTN, Hypercholesterolemia Denies: Chronic Kidney Disease Surgical History: Coronary Stent Family History: States: Unknown Family Hx - Social History Hx Alcohol Use: No Hx Substance Use: No - Immunization History Hx Tetanus Toxoid Vaccination: No Hx Influenza Vaccination: No Hx Pneumococcal Vaccination: No Review Of Systems Constitutional: Negative for: Fever, Chills Eyes: Negative for: Eyelid Inflammation, Redness ENT: Negative for: Nose Discharge, Nose Congestion Cardiovascular: Negative for: Chest Pain, Palpitations Respiratory: Positive for: Cough, Shortness of Breath Gastrointestinal: Negative for: Vomiting Musculoskeletal: Negative for: Neck Pain Skin: Negative for: Rash, Lesions Neurological: Positive for: Dizziness. Negative for: Numbness Physical Exam - Physical Exam Appears: Non-toxic, No Acute Distress Skin: Normal Color, Warm, Dry, No Rash Head: Atraumatic, Normacephalic Eye(s): bilateral: Normal Inspection Ear(s): Bilateral: Normal Oral Mucosa: Moist Throat: Normal, No Erythema, No Exudate Neck: Normal, Normal ROM, Supple Chest: Symmetrical, No Tenderness Cardiovascular: Rhythm Regular, No Friction Rub, No Murmur Respiratory: No Rales, No Rhonchi, Wheezing (bilateral expiratory) Gastrointestinal/Abdominal: Soft, No Tenderness Back: Normal Inspection, No CVA Tenderness Extremity: Normal ROM, No Swelling Neurological/Psych: Oriented x3, Normal Speech, Normal Motor Gait: Steady ED Course And Treatment - Laboratory Results Result Diagrams: 08/16/18 06:30 08/16/18 06:30 ECG: Interpreted By Me, Viewed By Me ECG Rhythm: V Paced (Atrial sense) ECG Interpretation: Normal Rate From EC O2 Sat by Pulse Oximetry: 99 (Room air) Pulse Ox Interpretation: Normal Medical Decision Making Medical Decision Making: EKG, blood work, and CXR ordered. Solumedrol and duoneb administered. Patient's BNP was elevated but that is the patient's baseline On re-exam, the patient reports improvement of symptoms. Lings are CTA, heart is RRR, abdomen is soft, non-tender and the patient is tolerating PO well. Pt is ambulatory in the ED with steady gait. Labs discussed with the patient. The patient states that he will see the PMD later today for further eval. Patient states that he still has prednisone and albuterol at home already. Disposition - Disposition Referrals: Chan Roland MD [Staff Provider] - Disposition: HOME/ ROUTINE Disposition Time: 07:05 Condition: GOOD Additional Instructions: Return if worsened. Follow up with the PMD within 1-2 days without fail. Instructions: Asthma, Adult (DC) Forms: [employer] (South Sudanese) - Clinical Impression Clinical Impression: Asthma exacerbation - PA / TELEGRAPH INSTALLER / Resident Statement MD/DO has reviewed & agrees with the documentation as recorded. - Scribe Statement The provider has reviewed the documentation as recorded by the Scribe Richard Mooney All medical record entries made by the Scribe were at my direction and personally dictated by me. I have reviewed the chart and agree that the record accurately reflects my personal performance of the history, physical exam, medical decision making, and the department course for this patient. I have also personally directed, reviewed, and agree with the discharge instructions and disposition.
[2018-08-16 06:30] VITALS: BP 104/64; PULSE 84; RESP 20
[2018-08-16 06:36] LABS: BASO % 0.1 % (0.0-2.0); LYMPH # 0.7 K/uL (1.0-4.3); LYMPH % 8.4 % (20.0-40.0); MEAN CELL VOLUME 100.2 fL (80.0-94.0); MEAN CORPUSCULAR HEMOGLOBIN 32.5 pg (27.0-31.0); MEAN CORPUSCULAR HGB CONC 32.4 g/dL (33.0-37.0); MEAN PLATELET VOLUME 8.7 fL (7.2-11.7); MONO % 13.3 % (0.0-10.0); NEUT # 6.1 K/uL (1.8-7.0); NEUT % 78.2 % (50.0-75.0); PLATELET COUNT 295 K/uL (130-400); RBC 3.78 Mil/uL (4.40-5.90); RED CELL DISTRIBUTION WIDTH 14.3 % (11.5-14.5); WHITE BLOOD COUNT 7.8 K/uL (4.8-10.8)
[2018-08-16 06:42] LABS: HEMOGLOBIN 12.3 g/dL (12.0-18.0)
[2018-08-16 06:46] LABS: ALB/GLOB RATIO 1.9 (1.0-2.1); ALBUMIN 4.1 g/dL (3.5-5.0); ALT/SGPT 20 U/L (21-72); AST/SGOT 25 U/L (17-59); BLOOD UREA NITROGEN 27 mg/dL (9-20); CALCIUM 9.2 mg/dl (8.6-10.4); GFR NON-AFRICAN AMERICAN > 60
[2018-08-16 06:58] LABS: B-TYPE NATRIURETIC PEPTIDE 4060 pg/mL (0-900)
[2018-08-16 07:06] VITALS: O2SAT 99
[2018-08-16 07:59] LABS: BANDS 1 % (0-2); LYMPHOCYTE 7 % (20-40); MONOCYTE 7 % (0-10); NEUTROPHIL 85 % (50-75); TOTAL CELLS COUNTED 100
[2018-08-16 08:00] LABS: PLATELET ESTIMATE NORMAL (NORMAL)
--- NOTE | 2018-08-16 10:35 | RAD ---
HISTORY: SOB COMPARISON: Chest x-ray performed 07/01/18 TECHNIQUE: Chest, one view. FINDINGS: LUNGS: Mild pulmonary venous congestion. Rounded opacities in the right upper lobe appear to be related to the costochondral cartilage; pulmonary nodules cannot be excluded. Please note that chest x-ray has limited sensitivity for the detection of pulmonary masses. PLEURA: No significant pleural effusion identified. No definite pneumothorax . CARDIOVASCULAR: Left-sided AICD. Marked cardiomegaly. Ectatic aorta with atherosclerotic calcifications. OSSEOUS STRUCTURES: Degenerative changes. VISUALIZED UPPER ABDOMEN: Unremarkable. OTHER FINDINGS: None. IMPRESSION: Rounded opacities in the right upper lobe appear to be related to the costochondral cartilage. Pulmonary nodules cannot be excluded. Pulmonary venous congestion. Right hilar prominence. Cardiomegaly. Left-sided AICD. Study marked for PA review.
== END 2018-08-16 07:14 | disposition home or self-care (01) ==
LOC: C.ER 04:41
DX: J45.901 Unspecified asthma with (acute) exacerbation (principal); I11.0 Hypertensive heart disease with heart failure; I50.9 Heart failure, unspecified; E78.00 Pure hypercholesterolemia, unspecified; Z95.5 Presence of coronary angioplasty implant and graft
CPT/HCPCS: 71045; 80053; 83880; 84484; 85025; 94640; 96374; 99285; J2930

== ENCOUNTER 2018-08-22 14:27 | Emergency (ER) | payer OTHER ==
[2018-08-22 14:27] VITALS: BMI 22.3
[2018-08-22] MEDS ORDERED: Albuterol-Ipratrop 3 mg / 0.5 (3 ml) UD ONE ×2 (14:53→15:19)
[2018-08-22 14:55] VITALS: TEMP 98.4; O2SAT 100
[2018-08-22] MEDS ORDERED: Albuterol-Ipratrop 3 mg / 0.5 (3 ml) UD INH STA ×3 (14:55→16:01)
--- NOTE | 2018-08-22 16:18 | RAD ---
Date of service: 08/22/2018 HISTORY: Asthma COMPARISON: 08/16/2018. TECHNIQUE: Chest PA and lateral FINDINGS: LINES AND TUBES: None. LUNG AND PLEURA: The lungs are well inflated and clear. No pleural effusion or pneumothorax. HEART AND MEDIASTINUM: There is severe cardiomegaly. There is stable position of left-sided dual lead permanent pacing device. No aortic atherosclerotic calcifications present. The hilar and mediastinal contours are within normal limits. SKELETAL STRUCTURES: The bony structures are within normal limits for the patient's age. VISUALIZED UPPER ABDOMEN: Normal. OTHER FINDINGS: None. IMPRESSION: No active pulmonary disease. Persistent severe cardiomegaly.
--- NOTE | 2018-08-22 17:26 | C.PDOC ---
History Of Present Illness 63 y/o male, w/PMhx of asthma, presents to the ER complaining of dyspnea and wheezing. Patient states that he took Duoneb and he used Prednisone 40 mg in the morning without relief. Patient denies having CP, fever,chills, cough, nausea, and vomiting. Time Seen by Provider: 08/22/18 15:18 Chief Complaint (Nursing): Shortness Of Breath History Per: Patient History/Exam Limitations: no limitations Onset/Duration Of Symptoms: Days Current Symptoms Are (Timing): Still Present Severity: Moderate Past Medical History Reviewed: Historical Data, Nursing Documentation, Vital Signs Vital Signs: Last Vital Signs Temp 98.4 F 08/22/18 14:52 Pulse 105 H 08/22/18 14:52 Resp 26 H 08/22/18 14:52 BP 101/67 08/22/18 14:52 Pulse Ox 100 08/22/18 14:52 - Medical History PMH: Asthma, CHF, COPD, HTN, Hypercholesterolemia Denies: Chronic Kidney Disease Surgical History: Coronary Stent Family History: States: No Known Family Hx - Social History Hx Alcohol Use: No Hx Substance Use: No - Immunization History Hx Tetanus Toxoid Vaccination: No Hx Influenza Vaccination: Yes Hx Pneumococcal Vaccination: No Review Of Systems Except As Marked, All Systems Reviewed And Found Negative. Constitutional: Negative for: Fever, Chills Respiratory: Positive for: Wheezing, Other (dyspnea) Gastrointestinal: Negative for: Nausea, Vomiting Physical Exam - Physical Exam Appears: Non-toxic, No Acute Distress Skin: Normal Color, Warm, Dry Head: Atraumatic, Normacephalic Eye(s): bilateral: Normal Inspection Nose: Normal Oral Mucosa: Moist Neck: Supple Chest: Symmetrical Cardiovascular: Rhythm Regular Respiratory: No Rales, No Rhonchi, Wheezing Gastrointestinal/Abdominal: Normal Exam, Soft, No Tenderness, No Guarding, No Rebound Neurological/Psych: Oriented x3, Normal Speech ED Course And Treatment O2 Sat by Pulse Oximetry: 100 (RA) Pulse Ox Interpretation: Normal - Other Rad CXR X-Ray: Viewed By Me, Read By Radiologist Interpretation: Date of service: 08/22/2018. HISTORY: Asthma. COMPARISON: 08/16/2018. TECHNIQUE: Chest PA and lateral. FINDINGS: LINES AND TUBES: None. LUNG AND PLEURA: The lungs are well inflated and clear. No pleural effusion or pneumothorax. HEART AND MEDIASTINUM: There is severe cardiomegaly. There is stable position of left-sided dual lead permanent pacing device. No aortic atherosclerotic calcifications present. The hilar and mediastinal contours are within normal limits. SKELETAL STRUCTURES: The bony structures are within normal limits for the patient's age. VISUALIZED UPPER ABDOMEN: Normal. OTHER FINDINGS: None. IMPRESSION: No active pulmonary disease. Persistent severe cardiomegaly. Progress Note: CXR ordered and reviwed. Patient treated with Dunoeb and Solu- Medrol IV. On re-evaluation, patient's lungs are CTA B/L. Patient has been d ischarged and instructed to follow up with PMD in 1-2 days. Disposition - Disposition Referrals: Chan Roland MD [Staff Provider] - Disposition: HOME/ ROUTINE Disposition Time: 17:21 Condition: STABLE Additional Instructions: Follow up with PMD within 1-2 days. Return to ED if feel worse. Prescriptions: Albuterol 0.083% [Albuterol Sulfate 3 Ml] 3 ml IH .Q4-6H #100 vial predniSONE [predniSONE Tab] 10 mg PO DAILY #23 tab Albuterol HFA [Ventolin HFA 90 mcg/actuation (8 g)] 1 puff IH .Q4-6H #1 inhaler Instructions: Asthma, Adult (DC) Forms: [employer] (Kinyarwanda) - Clinical Impression Clinical Impression: Asthma exacerbation - PA / HOME APPLIANCE TECHNICIAN / Resident Statement MD/DO has reviewed & agrees with the documentation as recorded. - Scribe Statement The provider has reviewed the documentation as recorded by the Gretta Briceño Provider Attestation All medical record entries made by the Gretta were at my direction and personally dictated by me. I have reviewed the chart and agree that the record accurately reflects my personal performance of the history, physical exam, medical decision making, and the department course for this patient. I have also personally directed, reviewed, and agree with the discharge instructions and disposition.
[2018-08-22 17:28] VITALS: BP 95/62; PULSE 94; RESP 20
== END 2018-08-22 17:33 | disposition home or self-care (01) ==
LOC: C.ER 14:27
DX: J45.901 Unspecified asthma with (acute) exacerbation (principal)
CPT/HCPCS: 71046; 94640; 96374; 99284; J2930

== ENCOUNTER 2018-09-15 10:26 | Emergency (ER) | payer OTHER ==
[2018-09-15 10:45] VITALS: BMI 20.5
[2018-09-15 10:54] VITALS: O2SAT 100
[2018-09-15] MEDS ORDERED: MethylPREDNISolone 40 mg Vial IVP STA (12:03)
--- NOTE | 2018-09-15 12:04 | C.PDOC ---
History Of Present Illness 63 y/o M c PMHx asthma p/w asthma exacerbation since yesterday. Began with sore throat and hoarse voice. Denies fever, chills, nausea, vomiting, chest pain. States symptoms are always largely relieved by solu-medrol. Never admitted or intubated. Time Seen by Provider: 09/15/18 11:56 Chief Complaint (Nursing): Shortness Of Breath Past Medical History Vital Signs: Last Vital Signs Temp 98.1 F 09/15/18 10:32 Pulse 105 H 09/15/18 10:32 Resp 17 09/15/18 10:32 BP 107/71 09/15/18 10:32 Pulse Ox 100 09/15/18 10:32 - Medical History PMH: Asthma, CHF, COPD, HTN, Hypercholesterolemia Denies: Chronic Kidney Disease Surgical History: Coronary Stent (01/2018) Family History: States: Unknown Family Hx - Social History Hx Alcohol Use: No Hx Substance Use: No - Immunization History Hx Tetanus Toxoid Vaccination: No Hx Influenza Vaccination: Yes (Apr 2018) Hx Pneumococcal Vaccination: Yes (Apr 2018) Review Of Systems Except As Marked, All Systems Reviewed And Found Negative. Physical Exam - Physical Exam Additional Physical Exam Comments: Constitutional: No acute distress. Head: Normocephalic. Atraumatic. Eyes: PERRL. ENT: Moist mucous membranes. Neck: Supple. Cardiovascular: Borderline tachycardic. Radial pulse 2+ bilaterally. Chest: No tenderness. Respiratory: Diffuse wheezing. GI: Soft. Nontender. Nondistended. Back: No CVA tenderness. Musculoskeletal: No tenderness or swelling of extremities. Skin: No rash. Neurologic: Alert, no focal deficit. ED Course And Treatment O2 Sat by Pulse Oximetry: 100 Medical Decision Making Medical Decision Making: EKG Atrial sensed vetnricularly paced rhtyhm without ST elevations. Patient declined CXR. Feels much better after treatment, discharged home, f/u primary care, return to ED for worsening breathing or any other problem. Disposition - Disposition Disposition: HOME/ ROUTINE Disposition Time: 13:54 Condition: GOOD Prescriptions: Prednisone [Deltasone] 3 tab PO DAILY #12 tablet Instructions: Asthma in Adults Forms: [employer] (Maori) - Clinical Impression Clinical Impression: Asthma exacerbation
[2018-09-15] MEDS ORDERED: Albuterol-Ipratrop 3 mg / 0.5 (3 ml) UD IH SCH (12:15)
[2018-09-15] MEDS ORDERED: Albuterol-Ipratrop 3 mg / 0.5 (3 ml) UD ONE (12:22)
[2018-09-15 13:27] VITALS: BP 93/58; PULSE 97; RESP 18; TEMP 98
--- NOTE | 2018-09-19 15:40 | CARD ---
APPROVED REPORT Date of service: 09/15/2018 EKG Measurement Heart [id number] IN 154P52 [id number] <Conclusion> Atrial-sensed ventricular-paced rhythm Abnormal ECG
== END 2018-09-15 14:19 | disposition home or self-care (01) ==
LOC: C.ER 10:26
DX: J45.901 Unspecified asthma with (acute) exacerbation (principal)
CPT/HCPCS: 93005; 94640; 96374; 99285; J2920

== ENCOUNTER 2018-10-01 11:41 | Emergency (ER) | payer OTHER ==
[2018-10-01 11:42] VITALS: BMI 20.5
[2018-10-01] MEDS: Albuterol-Ipratrop 3 mg / 0.5 (3 ml) UD IH SCH ×3 (12:20→12:50)
[2018-10-01] MEDS ORDERED: Albuterol-Ipratrop 3 mg / 0.5 (3 ml) UD ONE (12:23)
--- NOTE | 2018-10-01 12:26 | C.PDOC ---
History Of Present Illness 63 year old male with PMHx of asthma, CHF and recent pacemaker placement in July 2018 presents to the ED complaining of having a cold and congestion for the past several days. Also notes that recently he has been experiencing brian rtness of breath and chest tightness. Denies any fever, chills, vomiting, nausea, abdominal pain, or chest pain. Denies history of stroke. States he did one nebulizer treatment and took Prednisone with no improvement. PMD: Dr. Roland Time Seen by Provider: 10/01/18 11:58 Chief Complaint (Nursing): Cough, Cold, Congestion History Per: Patient History/Exam Limitations: no limitations Onset/Duration Of Symptoms: Days Current Symptoms Are (Timing): Still Present Associated Symptoms: Dyspnea - Asthma History Date Of Last ED Visit: 09/15/18 Past Medical History Reviewed: Historical Data, Nursing Documentation, Vital Signs Vital Signs: Last Vital Signs Temp 98.1 F 10/01/18 11:48 Pulse 110 H 10/01/18 11:48 Resp 20 10/01/18 11:48 BP 107/68 10/01/18 11:48 Pulse Ox 98 10/01/18 11:48 - Medical History PMH: Asthma, CHF, COPD, HTN, Hypercholesterolemia Denies: Chronic Kidney Disease Surgical History: Coronary Stent Family History: States: No Known Family Hx - Social History Hx Alcohol Use: No Hx Substance Use: No - Immunization History Hx Tetanus Toxoid Vaccination: Yes Hx Influenza Vaccination: Yes Hx Pneumococcal Vaccination: Yes Review Of Systems Except As Marked, All Systems Reviewed And Found Negative. Constitutional: Negative for: Fever, Chills Cardiovascular: Positive for: Other (chest tightness ). Negative for: Chest Pain Respiratory: Positive for: Shortness of Breath Gastrointestinal: Negative for: Nausea, Vomiting, Abdominal Pain Physical Exam - Physical Exam Appears: Non-toxic Skin: Warm, Dry, No Rash Head: Normacephalic Eye(s): bilateral: Normal Inspection Neck: Supple Chest: Symmetrical Cardiovascular: Rhythm Regular, No Murmur Respiratory: No Rales, No Rhonchi, Wheezing (B/L), Other (Mild respiratory distress ) Gastrointestinal/Abdominal: Soft, No Tenderness Extremity: Pedal Edema (1+ pitting edema ) Neurological/Psych: Oriented x3, Normal Speech Gait: Steady ED Course And Treatment - Laboratory Results Result Diagrams: 10/01/18 12:37 10/01/18 12:37 ECG: Interpreted By Me, Viewed By Me Interpretation Of ECG: Atrial sensed ventricular paced. Rate From EC O2 Sat by Pulse Oximetry: 98 (RA) Pulse Ox Interpretation: Normal - Other Rad CXR X-Ray: Viewed By Me, Read By Radiologist Interpretation: Accession No. : [id number]. Patient Name / ID : JAH RODRIGUEZ / [id number]. Exam Date : 10/01/2018 12:12:19 ( Approved ). Study C omment : Sex / Age : M / 63Y. Creator : Bill Winkler MD. Dictator : Bill Winkler MD. Staff Mine Warfare Officer : Business Applications Analyst : Bill Winkler MD. Approver2 : Report Date : 10/01/2018 12:35:09. My Comment : . Date of service: 10/01/2018. PROCEDURE: CHEST RADIOGRAPH, 1 VIEW. HISTORY: SOB. COMPARISON: 08/22/2018. FINDINGS: LUNGS: Clear. PLEURA: No pneumothorax or pleural fluid seen. CARDIOVASCULAR: No aortic atherosclerotic calcification present. Normal heart size. AICD. No congestive change. OSSEOUS STRUCTURES: No significant abnormalities. VISUALIZED UPPER ABDOMEN: Normal. OTHER FINDINGS: None. IMPRESSION: No active disease. Medical Decision Making Medical Decision Making: Plan - EKG - CXR - Neb treatment - Solumedrol 125mg IVP CXR shows cardiomegaly and pacemaker. Disposition Counseled Patient/Family Regarding: Diagnosis, Need For Followup - Disposition Referrals: Chan Roland MD [Staff Provider] - Kaycee Roland MD [Staff Provider] - Disposition: HOME/ ROUTINE Disposition Time: 15:30 Condition: IMPROVED Prescriptions: Prednisone [Deltasone] 60 mg PO DAILY #12 tablet Forms: [employer] (Bahamian) - POA Present On Arrival: None - Clinical Impression Clinical Impression: Asthma exacerbation, Chronic CHF - Scribe Statement The provider has reviewed the documentation as recorded by the Scribe Abbie Leary All medical record entries made by the Scribe were at my direction and p ersonally dictated by me. I have reviewed the chart and agree that the record accurately reflects my personal performance of the history, physical exam, medical decision making, and the department course for this patient. I have also personally directed, reviewed, and agree with the discharge instructions and disposition.
--- NOTE | 2018-10-01 12:38 | RAD ---
Date of service: 10/01/2018 PROCEDURE: CHEST RADIOGRAPH, 1 VIEW HISTORY: SOB COMPARISON: 08/22/2018 FINDINGS: LUNGS: Clear. PLEURA: No pneumothorax or pleural fluid seen. CARDIOVASCULAR: No aortic atherosclerotic calcification present. Normal heart size. AICD. No congestive change. OSSEOUS STRUCTURES: No significant abnormalities. VISUALIZED UPPER ABDOMEN: Normal. OTHER FINDINGS: None. IMPRESSION: No active disease.
[2018-10-01 12:40] LABS: BASO % 0.2 % (0.0-2.0); LYMPH # 0.2 K/uL (1.0-4.3); LYMPH % 1.2 % (20.0-40.0); MEAN CELL VOLUME 99.7 fL (80.0-94.0); MEAN CORPUSCULAR HEMOGLOBIN 33.1 pg (27.0-31.0); MEAN CORPUSCULAR HGB CONC 33.2 g/dL (33.0-37.0); MEAN PLATELET VOLUME 7.7 fL (7.2-11.7); MONO # 0.8 K/uL (0.0-0.8); MONO % 6.1 % (0.0-10.0); NEUT % 92.5 % (50.0-75.0); PLATELET COUNT 231 K/uL (130-400); RBC 4.22 Mil/uL (4.40-5.90); RED CELL DISTRIBUTION WIDTH 14.2 % (11.5-14.5)
[2018-10-01 12:53] LABS: ALBUMIN 4.3 g/dL (3.5-5.0); ALT/SGPT 25 U/L (21-72); AST/SGOT 30 U/L (17-59); BLOOD UREA NITROGEN 42 mg/dL (9-20); CALCIUM 9.2 mg/dl (8.6-10.4); GFR NON-AFRICAN AMERICAN 51
[2018-10-01 13:04] LABS: B-TYPE NATRIURETIC PEPTIDE 5950 pg/mL (0-900)
[2018-10-01] MEDS ORDERED: Magnesium Sulfate 1 gm in D5W 1 GM/100 ML BAG IVPB ONE ×2 (14:10→14:57)
[2018-10-01] MEDS ORDERED: Albuterol 0.083% Inhal Sol (2.5 mg/3 mL) UD ONE (14:11)
[2018-10-01] MEDS: Albuterol 0.083% Inhal Sol (2.5 mg/3 mL) UD INH SCH ×3 (14:15→14:45)
[2018-10-01] MEDS: Magnesium Sulfate 1 gm in D5W 1 GM/100 ML BAG IVPB SCH ×2 (14:27→14:56)
[2018-10-01 14:31] LABS: ANISOCYTOSIS SLIGHT; BANDS 1 % (0-2); LYMPHOCYTE 2 % (20-40); MONOCYTE 3 % (0-10); NEUTROPHIL 94 % (50-75); PLATELET ESTIMATE NORMAL (NORMAL); TOTAL CELLS COUNTED 100
[2018-10-01] MEDS ORDERED: Sodium Chloride 0.9% 500 ML IV ONE (15:08)
[2018-10-01 15:30] VITALS: O2SAT 98
[2018-10-01 15:53] VITALS: BP 99/57; PULSE 99; RESP 22; TEMP 97.8
--- NOTE | 2018-10-02 12:22 | CARD ---
APPROVED REPORT Date of service: 10/01/2018 EKG Measurement Heart [id number] VT 160P59 [id number] <Conclusion> Atrial-sensed ventricular-paced rhythm with fusion complexes Abnormal ECG
== END 2018-10-01 15:48 | disposition home or self-care (01) ==
LOC: C.ER 11:41
DX: J45.901 Unspecified asthma with (acute) exacerbation (principal); I50.9 Heart failure, unspecified
CPT/HCPCS: 71045; 80053; 83880; 84484; 85025; 93005; 94150; 94640; 96365; 96366; 96375; 99285; J2930; J3475; J7040

== ENCOUNTER 2018-10-05 15:48 | Emergency (ER) | payer OTHER | END 2018-10-05 19:19 | disposition home or self-care (01) | LOC: C.ER 15:48 | DX: J45.901 Unspecified asthma with (acute) exacerbation (principal) | CPT/HCPCS: 71046; 80053; 82803; 84484; 85025; 87040; 93005; 94640; 96374; 99284; J2920 ==